=== PATIENT | male | born 1930 | race Caucasian/White ===

== ENCOUNTER 2017-08-15 10:03 | Outpatient (CLI) | payer MEDICARE, OTHER ==
--- NOTE | 2017-08-15 12:39 | ULT ---
RENAL SONOGRAM: HISTORY: Chronic renal disease. FINDINGS: The right kidney is 10.7 cm in length and the left is 9.1 cm. Minimal distention of each renal colle cting system is present. The urinary bladder is incompletely distended. Bilateral ureteral jets are apparent. IMPRESSION: Minimal distention of each renal collecting system. High-grade obstruction is not favored, given the bilaterality. No focal renal lesions are apparent. POS: [facility]
== END 2017-08-15 10:04 | disposition home or self-care (01) ==
LOC: ULT 10:03
PROVIDERS: ATTEND Internal Medicine Nephrology
DX: N18.9 Chronic kidney disease, unspecified (principal)
CPT/HCPCS: 76770

== ENCOUNTER 2017-09-04 11:25 | Outpatient (CLI) | payer MEDICARE, OTHER ==
--- NOTE | 2017-09-04 13:07 | RAD ---
PA AND LATERAL CHEST: History: Dyspnea. FINDINGS: Comparison made with 02-20-17. Heart size is normal. The aorta is tortuous. The lungs are well expanded. Stable chronic changes. No lobar consolidation, pneumothoraces or pleural effusions are seen. Old rib fractures are again redemo nstrated. There are degenerative changes of the spine. IMPRESSION: Stable exam. No acute process. POS: [facility]
== END 2017-09-04 11:26 | disposition home or self-care (01) ==
LOC: RAD 11:25
PROVIDERS: ATTEND Internal Medicine Critical Care Medicine
DX: R06.00 Dyspnea, unspecified (principal)
CPT/HCPCS: 71046

== ENCOUNTER 2017-09-13 12:22 | Outpatient (CLI) | payer MEDICARE, OTHER ==
--- NOTE | 2017-09-13 13:21 | RAD ---
CHEST TWO VIEWS: History: Dyspnea. Comparison: 09-04-17 FINDINGS: Heart size is within normal limits. There are atherosclerotic changes of the aorta. The lungs are sonal ar of infiltrates. There are arthritic changes of the spine and there are old right rib fractures and old right clavicle fracture noted. IMPRESSION: COPD type changes. No active intrathoracic disease. POS: [facility]
== END 2017-09-13 12:23 | disposition home or self-care (01) ==
LOC: RAD 12:22
PROVIDERS: ATTEND Internal Medicine Critical Care Medicine
DX: R06.00 Dyspnea, unspecified (principal)
CPT/HCPCS: 71046

== ENCOUNTER 2018-01-22 06:15 | Inpatient (IN) | payer MEDICARE, OTHER ==
[2018-01-22 06:37] LABS: #Basophils 0.1 thou/uL (0.0-0.2); #Eosinphils 0.2 thou/uL (0.0-0.7); #Lymphocytes 2.1 thou/uL (1.20-3.40); #Monocytes 0.7 thou/uL (0.11-0.59); #Neutrophils 3.6 thou/uL (1.40-6.50); %Basophils 0.8 % (0.0-1.0); %Eosinophils 3.6 % (0.0-10.0); %Lymphocytes 30.9 % (21.0-51.0); %Monocytes 10.4 % (0.0-10.0); %Neutrophils 54.4 % (42.0-75.0); Hemoglobin 14.2 g/dL (14.0-18.0); Mean Corpuscular HGB CONC 34.7 g/dL (32.0-36.0); Mean Corpuscular Hemoglobin 35.2 pg (27.0-31.0); Mean Platelet Volume 7.4 fL (7.4-10.4); Platelet Count 190 thou/uL (130-400); RBC Distribution Width 11.8 % (11.5-14.5); Red Blood Cell (RBC) Count 4.02 mill/uL (4.70-6.10); White Blood Cell (WBC) Count 6.7 thou/uL (4.8-10.8)
[2018-01-22 06:42] LABS: INR-International Normal Ratio 1.1; PTT 31.1 SEC (22.9-36.1); Prothrombin Time 13.9 SEC (12.0-14.7)
[2018-01-22 06:51] LABS: ALT (SGPT) 11 U/L (8-55); AST (SGOT) 19 U/L (5-34); Albumin 3.6 g/dL (3.4-4.8); Alkaline Phosphatase 67 U/L (40-150); Anion Gap 11 mmol/L (10-20); BUN (Urea Nitrogen) 19 mg/dL (8.4-25.7); Bilirubin, Total 0.6 mg/dL (0.2-1.2); Calc. Creatinine Clearance 0 mL/min (70-130); Calcium 9.3 mg/dL (7.8-10.44); Carbon Dioxide 25 mmol/L (23-31); Chloride 108 mmol/L (98-107); Estimated GFR-MDRD 45; Globulin 2.6 g/dL (2.4-3.5); Glucose 99 mg/dL (83-110); Lipase 108 U/L (8-78); Magnesium 2.4 mg/dL (1.6-2.6); Potassium 4.2 mmol/L (3.5-5.1); Protein, Total 6.2 g/dL (5.8-8.1); Sodium 140 mmol/L (136-145)
[2018-01-22 06:55] LABS: CKMB 1.4 ng/mL (0-6.6); Troponin I Less than 0.010 ng/mL (< 0.028)
--- NOTE | 2018-01-22 07:44 | RAD ---
UPRIGHT FRONTAL CHEST RADIOGRAPH: DATE: 01/22/18. COMPARISON: 03/14/14. HISTORY: Altered mental status with right-sided facial droop. FINDINGS: Old fracture of mid shaft right clavicle and old right rib fractures noted. There is an old AC joint injury on the left which includes a distal clavicle fracture and widening of the left AC and CC interspace. There is chronic linear interstitial density bilaterally, unchanged. There is no pneumothorax, pleural fluid, lobar consolidation, or alveolar edema. There is atherosc lerotic calcification in the aortic arch. IMPRESSION: Multiple stable chronic findings as described above. POS: [facility]
[2018-01-22 08:06] LABS: Bilirubin Negative (Negative); Blood, Urine Negative (Negative); Clarity CLEAR (Clear); Glucose, Urine (Dipstick) Negative (Negative); Leukocyte Negative (Negative); Nitrite Negative (Negative); Protein, Urine (Dipstick) Negative (Neg-Trace); Specific Gravity, Urine 1.036 (1.002-1.036); Urobilinogen 0.2 mg/dL (0.2-1.0); pH, Urine 7.5 (5.0-9.0)
--- NOTE | 2018-01-22 09:11 | CT ---
PRELIMINARY REPORT/[facility]/EMERGENTY AFTER-HOURS PROCEDURE Addendum created by James Pierre DO on 01/22/2018 6:43 AM Central Time ([place]) The findings wer e verbally communicated via telephone conference with JOHNNY Ribera at 6:43 AM CDT on 01/23/20 18. The findings were acknowledged and understood. Initial Report created on 01/22/2018 6:33 AM Central Time ([place] & [place]) CT Head Without Intravenous Contrast CLINICAL HISTORY: 87 years old, male; Signs and symptoms; Weakness, facial; Additional info: Pt was last seen normal at 0300. Pt is having rt side facial droop TECHNIQUE: Axial computed tomography images of the head/brain without intravenous contrast. COMPARISON: No relevant prior studies available. FINDINGS: Brain: There is a moderate burden of hypodense lesions in the frontoparietal white matter. There are calcifications of the bilateral cerebellar white matter, thalami, basal ganglia, and bilateral fronto parietal white matter suggesting Fahr disease. There is moderate generalized brain parenchymal volume loss. There is no acute cerebral cortical edema. There is no intracranial hemorrhage. There is a 10 mm chronic area of encephalomalacia in the left frontal cortex at the vertex. Ventricles: Unremarkable. No ventriculomegaly. Bones/joints: Unremarkable. No acute fracture. Soft tissues: Unremarkable. Vasculature: There are moderate intracranial atherosclerotic vascular calcifications. Sinuses: Unremarkable as visualized. No acute sinusitis. Mastoid air cells: Unremarkable as visualized. No mastoid effusion. IMPRESSION: 1. There is a moderate burden of hypodense lesions in the frontoparietal white matter. These are prob ably secondary to chronic small vessel ischemic disease, however they are age indeterminate without a comparison study and I cannot exclude an acute or subacute lacunar infarction. If there is clinical suspicion of acute ischemia, further evaluation with MRI could be considered. 2. There is no mass effect, midline shift, intracranial hemorrhage, or large arterial vessel territor y acute cerebral cortical edema. 3. 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 This interpretation was based upon the receipt of 73 image(s). Thank you for allowing us to participate in the care of your patient. Dictated and Authenticated by: James Pierre DO 01/22/2018 6:33 AM Central Time ([place] & [place]) CT BRAIN WITHOUT CONTRAST: FINAL REPORT I agree with the preliminary report given by Dr. Pierre with [facility]. Findings are similar to those seen on 08-16-17. POS: [facility]
--- NOTE | 2018-01-22 09:49 | CT ---
Addendum created by James Pierre DO on 01/22/2018 6:43 AM Central Time ([place]) The findings wer e verbally communicated via telephone conference with JOHNNY Ribera at 6:43 AM CDT on 01/23/20 18. The findings were acknowledged and understood. Initial Report created on 01/22/2018 6:33 AM Central Time ([place] & [place]) CT Head Without Intravenous Contrast CLINICAL HISTORY: 87 years old, male; Signs and symptoms; Weakness, facial; Additional info: Pt was last seen normal at 0300. Pt is having rt side facial droop TECHNIQUE: Axial computed tomography images of the head/brain without intravenous contrast. COMPARISON: No relevant prior studies available. FINDINGS: Brain: There is a moderate burden of hypodense lesions in the frontoparietal white matter. There are calcifications of the bilateral cerebellar white matter, thalami, basal ganglia, and bilateral fronto parietal white matter suggesting Fahr disease. There is moderate generalized brain parenchymal volume loss. Th ere is no acute cerebral cortical edema. There is no intracranial hemorrhage. There is a 10 mm chroni c area of encephalomalacia in the left frontal cortex at the vertex. Ventricles: Unremarkable. No ventriculomegaly. Bones/joints: Unremarkable. No acute fracture. Soft tissues: Unremarkable. Vasculature: There are moderate intracranial atherosclerotic vascular calcifications. Sinuses: Unremarkable as visualized. No acute sinusitis. Mastoid air cells: Unremarkable as visualized. No mastoid effusion. IMPRESSION: 1. There is a moderate burden of hypodense lesions in the frontoparietal white matter. These are prob ably secondary to chronic small vessel ischemic disease, however they are age indeterminate without a comparison study and I cannot exclude an acute or subacute lacunar infarction. If there is clinical suspicion of acute ischemia, further evaluation with MRI could be considered. 2. There is no mass effect, midline shift, intracranial hemorrhage, or large arterial vessel territor y acute cerebral cortical edema. 3. 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 This interpretation was based upon the receipt of 73 image(s). Thank you for allowing us to participate in the care of your patient. Dictated and Authenticated by: James Pierre DO 01/22/2018 6:33 AM Central Time ([place]) FINAL REPORT CT ANGIOGRAM OF THE HEAD CT ANGIOGRAM OF THE NECK: DATE: 01/22/18. COMPARISON: None. HISTORY: Right-sided facial droop. FINDINGS: Serial axial CT imaging at 1.25 mm intervals from the vertex through the lung apices provided with IV contrast. Coronal and sagittal 3D reformatted imaging obtained utilizing a CT angiogram protocol. FINDINGS: Imaged lung apices are unremarkable. The retroantral and parapharyngeal fat appears clear. The paro tid and submandibular glands appear grossly unremarkable. No lymphadenopathy is seen in the neck. The origin of the great vessels is not included on this exam. Imaged portions of the proximal left subclavian artery, common carotid artery, and innominate artery demonstrate patency. There is scattered atherosclerotic calcification of the proximal aspect bilateral subclavian arteries . There is mild stenosis at the origin of the left vertebral artery. The left vertebral artery appears unremarkable otherwise. The right vertebral artery appears grossly unremarkable. The right common carotid artery is patent and tortuous proximally. There is mild atherosclerotic candy cification of the proximal right ICA and proximal right ECA. The right ICA is tortuous. No hemodyna mically significant stenosis is seen involving the right internal carotid artery. The left common carotid artery is tortuous proximally but patent with no hemodynamically significant stenosis. There is a prominent focus of atherosclerotic disease which includes calcified and noncalcified plaqu e at the origin of the left internal carotid artery. This prominent calcified and noncalcified plaqu e measures 2.2 cm in length. There is resultant stenosis of the proximal left ICA measuring in the 6 0% range. Left ICA distal to this is tortuous but patent. The basilar artery and its branches appear patent. There is atherosclerotic calcification of bilateral cavernous carotid arteries. The A1 segment and d istal EDDY branches appear intact bilaterally. The M1 segment and the MCA bifurcation appears within normal limits bilaterally. No worrisome lytic or blastic bone lesion. Multilevel degenerative change noted within the cervical spine, including multilevel disk space narrowing and facet hypertrophy, right greater than left. There is evidence of proximal M2 branch occlusion anteriorly on the left on axial image 196 and sagit daksha image 60. IMPRESSION: 1. 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 2. M2 proximal clot within left middle cerebral artery branches as detailed above. 3. This is in agreement with the preliminary [facility] report. POS: [facility]
[2018-01-22] MEDS ORDERED: Ondansetron HCl/PF 4 MG/2 ML Vial IVP PRN (10:38)
[2018-01-22] MEDS ORDERED: Labetalol HCl 100 MG/20 ML VIAL SLOW IVP PRN (10:38)
[2018-01-22] MEDS ORDERED: Guaifenesin DM 100-10/5 ML UDCUP PO PRN (10:38)
[2018-01-22] MEDS ORDERED: Dextrose 5 % And 0.9 % NaCl 1,000 ML IV SCH (11:00)
--- NOTE | 2018-01-22 11:33 | CON ---
DATE OF CONSULTATION: 01/22/2018 This is an 87-year-old gentleman who was brought in from [place] after 3:00 in the morning. He woke up with inability to talk, slurred speech. His called the ambulance [facility] where an emergency CT head did not show anything acute, but a CT angio s howed a 60% stenosis within the left internal carotid artery as well as an M2 proximal clot in the le ft middle cerebral artery branches. He was given as per the protocol t-PA as per the ER physician. Please review the ER physician's note as to the medicine given and at what time. Apparently Dr. Barbour was consulted by phone and that he was a candidate for t-PA, which was given. T otal amount of medication given, Activase 100 mg. The patient is otherwise in the ICU now awake, alert, responsive. His slurred speech is improved. H e is able to move all 4 extremities. He still got some drooping of his right side of his face. PAST MEDICAL HISTORY: The patient has an extensive past medical history that is well outlined in his medical records, pertinent for cardiac arrhythmias, atrial fibrillation, hyperlipidemia, high choles terol, dementia, previous CVA, history of trauma with multiple fractures as outlined. PAST SURGICAL HISTORY: Included colonoscopy, prostate radiation, lap for perforated colon. MEDICATIONS: His list of medicine from home includes trazodone 50, Flomax 0.4, Protonix 40, metoprol ol, Lopressor 25 DuoNeb as needed. Amiodarone 400 twice a day, Aricept 5, Cardizem 240, Lipitor 20, aspirin 325. ALLERGIES: TRAMADOL. SOCIAL/FAMILY HISTORY: No alcohol or tobacco abuse. REVIEW OF SYSTEMS: Otherwise unremarkable. PHYSICAL EXAMINATION: VITAL SIGNS: Sats are 95 on 2 liters, respiration 19, blood pressure 125/61, pulse is 69, atrial fib rillation. CHEST: Chest reveals no wheezing or crackles. CARDIAC: Normal S1, S2, no gallops. ABDOMEN: Soft, no masses. LABORATORY AND X-RAY FINDINGS: Chest x-ray was otherwise unremarkable. His lab shows a white count 6000, H&H 14 and 40, platelet 190, creatinine 1.47, mild azotemia which h as been chronic. IMPRESSION: 1. Acute right middle cerebral artery thrombus status post t-PA, 100 mg. 2. Dementia. 3. Chronic atrial fibrillation. 4. Benign prostatic hypertrophy. 5. History of prostate cancer. PLAN: I agree with ICU care. Continue home medication including aspirin and supportive care. PT ordered. We will follow while in the IMCU and notify Dr. Turner who has seen him in the past for several years. This is a consultation note, 70 minutes in which 50% spent in direct patient care.
--- NOTE | 2018-01-22 12:51 | HP ---
REASON FOR ADMISSION: Acute cerebrovascular accident status post TPA. HISTORY OF PRESENTING ILLNESS: Please note majority of this history is obtained by my talking to edy love's here at bedside as patient is aphasic and is not oriented at present. Patient apparently got up at 2 in the morning, went to restroom and came back to bed. He got up again at 4:00 a.m. to go to restroom, came back to bed. The got up to ask him if he is okay. He started groaning and could not talk. He was also confused/out of it per . He did not make eye contact when he was t rying to communicate. All of this concerned and patient's called EMS. As patient was within th e window and his CT angio revealed thrombus, he was given TPA in the ER. This was approved by Dr. Wes wallace, intervention neurosurgeon. The also mentions that he has had prior history of stroke in and he could not walk then, but then it got better and was ambulating. He has a tendency to fa ll with unsteady gait from then on. He also has history of atrial fibrillation, but has not been giv en anticoagulation due to risk of fall and bleed due to unsteady gait. Currently, he is awake, but i s not oriented. PAST MEDICAL AND SURGICAL HISTORY: History of CVA in 2013 with no residual dementia, hypertension, d yslipidemia, chronic atrial fibrillation, hernia repair, right knee surgery, colonoscopy. Prostate c ancer with prior history of radiation implants placed. History of rectal bleed due to radiation inju ry from prostate cancer to the garcia of the rectum per . CURRENT MEDICATIONS: Patient takes aspirin 325 mg p.o. daily, calcium 600 mg p.o. daily, glucosamine daily, Multaq 400 mg twice daily, Namenda 10 mg twice daily, Myrbetriq extended release 25 mg daily, Crestor 10 mg p.o. at bedtime, Aricept 10 mg daily. ALLERGIES: No known drug allergies. SOCIAL HISTORY: Does not abuse alcohol or drugs. No history of smoking. Lives with his of 18 years now. FAMILY HISTORY: Mother lived up to 92 years. Father of stroke and its complications in his 60s . CODE STATUS: FULL. Power of city attorney is his son, Mr. Jeyson Churchill. He lives in [place]. Numbe r to reach him is [phone]. His , Ms. Nolasco's number is [phone]. REVIEW OF SYSTEMS: Cannot be obtained as patient is not oriented. PHYSICAL EXAMINATION: GENERAL: The patient is an 87-year-old male who is currently not in any distress. VITAL SIGNS: Blood pressure 156/74, pulse 66 per minute, respiratory rate 18 per minute, temperature 97.4 degrees Fahrenheit, saturating 97% on 2 liters nasal cannula. NECK: Supple, no elevated JVD. EYES: Extraocular muscles intact. Pupils reacting to light. ORAL CAVITY: Mucous membranes are moist. No exudates or congestion. CARDIOVASCULAR SYSTEM: S1, S2 heard. Irregular rhythm. RESPIRATORY SYSTEM: Air entry 1+ bilateral. Scattered rhonchi plus no rales or wheezes. ABDOMEN: Soft, bowel sounds heard. No tenderness, rigidity or guarding. EXTREMITIES: No peripheral edema or calf tenderness. VASCULAR SYSTEM: Peripheral pulses 1+ bilateral, no ischemic ulcerations or gangrene. CENTRAL NERVOUS SYSTEM: There is loss of nasolabial fold on the left side. Otherwise, cranial nerve s are grossly intact. Motor system strength in right side is 3/5, left is 5/5, reflexes are 2+ bilat eral. Babinski is equivocal. Cerebellar signs could not be tested as patient is not oriented. Gait is not tested. PSYCHIATRIC SYSTEM: Cannot be ascertained due to patient's poor cognition at present. IMAGING DATA AND LABORATORY DATA: CT brain done shows moderate hypodense lesions in the frontopariet al white matter. There is no mass effect, midline shift or hemorrhage seen. There are calcification s in bilateral cerebellar white matter thalami, basal ganglia and bilateral frontoparietal white wesley er suggestive of Fahr disease. CT angio brain showed approximately 60% stenosis at the origin of lef t internal carotid artery. There is end to proximal clot within the left middle cerebral artery bran ches. Chest x-ray done shows chronic stable findings. EKG done shows sinus rhythm at 68 beats per m inute. There is frequent PVC seen. There is Q-wave seen in lead II, III, AVF. White count of 6.7, hemoglobin and hematocrit 14 and 40, platelet count 190, MCV is 101 with 54% neutrophils. PT, INR, P TT within normal limits. BUN 19, creatinine 1.4 and serum glucose 99. Liver enzymes within normal l imits. First set of cardiac enzymes are negative. Lipase is 108. Albumin is 3.6. First set of car diac enzymes are negative. CLINICAL IMPRESSION AND PLAN: The patient is status post CVA with aphasia and right-sided hemiparesi s, status post TPA. He will be on aspirin, Lipitor, D5 normal saline at 75 mL per hour. Continue hi s Cardizem CD, donepezil, Namenda and Flomax as before. We will obtain consultations with Dr. Anselmo rodriguez for Neurology and Dr. Wynne for Pulmonary and Critical Care. Echo with 2D Doppler and MRI will b e obtained. We will continue to closely monitor him for any hemodynamic compromise. His current cod e status is FULL. We will update his son who is also the power of city attorney, Missael Jeyson Churchill don[place]
--- NOTE | 2018-01-22 13:14 | MRI ---
BRAIN MRI WITHOUT CONTRAST: 01/22/2018 HISTORY: CVA. COMPARISON: 03/14/2014 TECHNIQUE: Multiplanar, multisequence MR imaging of the brain is obtained without contrast. FINDINGS: Weighted imaging demonstrates no evidence for acute infarction. Gradient echo imaging demonstrates blooming artifact within the basal ganglia and thalami, as well as within the periventricular white matter, evidence of extensive calcification, stable. Arterial flow voids at the axial level of the skull base appear grossly unremarkable. There is extensive periventricular deep and subcortical white matter hypodensity, evidence of small v essel disease. Small foci of old infarction noted in the bilateral cerebellar hemispheres. Regional bone marrow signal intensity appears within normal limits. Stable diffuse cerebral volume l oss. The imaged paranasal sinuses and mastoid air cells are well aerated. IMPRESSION: Cerebral volume loss with extensive small vessel disease. No acute infarction. POS: [facility]
[2018-01-22] MEDS: Dronedarone HCl 400 MG TAB PO SCH (17:26)
--- NOTE | 2018-01-22 21:29 | CON ---
DATE OF CONSULTATION: 01/22/2018 Consultation is request for history of prostate cancer and lower urinary tract symptoms. HISTORY OF PRESENT ILLNESS: The patient is an 87-year-old male who was followed by me after transferring from urologist for his history of prostate cancer and his lower urinary tract symptoms. He was admitted to the hospital with a stroke. He denies any difficulty urinating currently. He does not feel full like he is unable to empty. Normally he had frequency every 2-3 hours, nocturia x4. He has been taking Myrbetriq for years at 50 mg. An Uroflow in October of this year was also concerned about the inability of the bladder to contract and empty appropriately , so I had to hold this. I asked him to restart it only if his nocturia or lower urinary tract symptoms worsened. He comes back on 25 mg and the daughter and he assumed that the primary restarted at a lower dose. He has T1C prostate cancer, Sarles 7, PSA 11.0 status brachytherapy in 2001. Last PSA was less than 0.1 from 01/2015. I don't think there is need to continue checking PSAs. He also had a history of urinary tract infections which I already completed workup including a renal ultrasound from August of this year which was normal and cystoscopy from October of this year which showed trabeculations and hyperemia near the bladder neck consistent with his prior brachytherapy. Hygiene was emphasized at this time since he did have excess foreskin, but no phimosis. PAST MEDICAL HISTORY: Significant for GERD; TIAs; CVA, most significant one was in 02/2014; atrial fibrillation; dementia. PAST SURGICAL HISTORY: Includes hernia, colon surgery after an injury during colonoscopy, right knee surgery for trauma and the above-mentioned brachytherapy. MEDICATIONS: Aspirin, glucosamine, Multaq, Namenda, Aricept and Cardizem. SOCIAL HISTORY: He does not smoke. He has alcoholic beverages once or twice a week. He denies any shortness of breath, cough, chest pain. He does have some weakness on the right, his bowels are normal. ALLERGIES: None. REVIEW OF SYSTEMS: Already mentioned above to include a colonoscopy in 2007 that was normal. FAMILY HISTORY: Reveals his father at 71 of heart disease and diabetes. Mother at 92 of stroke. PHYSICAL EXAMINATION: GENERAL: He is alert and appropriate. VITAL SIGNS: T-max 98.6, blood pressure 136/84, heart rate 68, satting 93% on 2 liters with the respiratory rate of 18. NECK: No obvious JVD. HEENT: He has no scleral icterus. CARDIOVASCULAR: Regular rate, irregular rhythm. LUNGS: Clear to auscultation bilaterally. ABDOMEN: Softly distended with normoactive bowel sounds. GENITOURINARY: Testes were descended bilaterally and atrophic. Phallus was uncircumcised without lesions, nor phimosis and no smegma noted. There was no meatal stenosis. EXTREMITIES: No lower extremity edema. He was able to move and grasp with his limbs. LABORATORY DATA: CBC is unremarkable. Creatinine is 1.47, which is similar to his baseline. Lipase was slightly elevated at 108. The urinalysis was negative. Last recent positive culture was from 01/2017 from urinalysis standpoint. ASSESSMENT AND PLAN: We have an 87-year-old male admitted with a stroke and my only concern would be to make sure he is adequately emptying, so I have asked the nurse to bladder scan him. He can continue his Myrbetriq 25 mg as long as it is not going to interact with any medication that is added during the stay-- and he's emptying adequately. He can continue without a catheter for now and follow up with me as he was previously scheduled. [place]
[2018-01-22] MEDS: Atorvastatin Calcium 20 MG TAB PO SCH (22:21)
[2018-01-22] MEDS: Donepezil HCl 5 MG TAB PO SCH (22:21)
[2018-01-22] MEDS: Tamsulosin HCl 0.4 MG CAP PO SCH (22:21)
[2018-01-22] MEDS: Docusate 100 MG CAP PO SCH (22:25)
[2018-01-23] MEDS ORDERED: Pantoprazole 40 MG GRANULES PACKET PO SCH (09:00)
[2018-01-23] MEDS: Aspirin 325 mg Enteric Coated Tablet PO SCH (09:18)
[2018-01-23] MEDS: Dronedarone HCl 400 MG TAB PO SCH (09:18)
[2018-01-23 09:19] LABS: #Basophils 0.1 thou/uL (0.0-0.2); #Eosinphils 0.1 thou/uL (0.0-0.7); #Lymphocytes 1.2 thou/uL (1.20-3.40); #Monocytes 0.6 thou/uL (0.11-0.59); #Neutrophils 5.4 thou/uL (1.40-6.50); %Basophils 0.7 % (0.0-1.0); %Eosinophils 1.1 % (0.0-10.0); %Lymphocytes 16.3 % (21.0-51.0); %Monocytes 8.7 % (0.0-10.0); %Neutrophils 73.2 % (42.0-75.0); Hemoglobin 14.1 g/dL (14.0-18.0); Mean Corpuscular HGB CONC 34.1 g/dL (32.0-36.0); Mean Corpuscular Hemoglobin 33.9 pg (27.0-31.0); Mean Corpuscular Volume 99.6 fL (78.0-98.0); Mean Platelet Volume 7.5 fL (7.4-10.4); Platelet Count 175 thou/uL (130-400); RBC Distribution Width 11.6 % (11.5-14.5); Red Blood Cell (RBC) Count 4.16 mill/uL (4.70-6.10); White Blood Cell (WBC) Count 7.3 thou/uL (4.8-10.8)
[2018-01-23] MEDS: Docusate 100 MG CAP PO SCH ×2 (09:19→23:43)
[2018-01-23 09:37] LABS: Anion Gap 11 mmol/L (10-20); BUN (Urea Nitrogen) 20 mg/dL (8.4-25.7); Calc. Creatinine Clearance 37 mL/min (70-130); Calcium 9.1 mg/dL (7.8-10.44); Carbon Dioxide 24 mmol/L (23-31); Cardiac Risk 2.6 (Less than 4.5); Chloride 106 mmol/L (98-107); Cholesterol 124 mg/dl (< 200 Desired); Estimated GFR-MDRD 43; Glucose 166 mg/dL (83-110); HDL Cholesterol 48 mg/dL (>60 Neg Risk); LDL Cholesterol, Calculated 61 mg/dL; Potassium 4.1 mmol/L (3.5-5.1); Sodium 137 mmol/L (136-145); Triglycerides 76 mg/dL (Less than 150)
--- NOTE | 2018-01-23 10:41 | PRG ---
DATE OF SERVICE: 01/23/2018 SUBJECTIVE: The patient apparently did not sleep well per his family member. Overnight, there have been no new events. He was bladder scanned for approximately 280, but was not complaining of urgency or difficulty in emptying. So, I opted not to catheterize him; however, I did say all Myrbetriq nee ds to be held for this reason. OBJECTIVE: His vitals have been stable. He has been using a urinal or voiding into a diaper. ASSESSMENT AND PLAN: On assessment, we have an 87-year-old gentleman, admitted with a stroke, doing well from that standpoint. Significant lower urinary tract symptoms with incomplete emptying and a r [facility] history of prostate cancer. Hold on Myrbetriq. Monitor bladder scan if the patient has concer ns regarding emptying, but hold off on any catheterization at this point. If catheter would be neede d in the future, there should be no trouble in placement. A cystoscopy in October of this year showed no obstructive concerns.
--- NOTE | 2018-01-23 12:45 | PDOC.PN ---
- Subjective Encounter Start Date: 01/23/18 Encounter Start Time: 10:00 Subjective: awake, communicating well now -: is oriented and moving all extremities -: son and daughter at bedside - Objective Resuscitation Status: Resuscitation Status FULL:Full Resuscitation MAR Reviewed: Yes Vital Signs & Weight: Vital Signs (12 hours) Temp Pulse Pulse Pulse Resp BP BP 01/23/18 12:00 98.1 F 01/23/18 09:55 85 85 95/65 01/23/18 09:19 84 112/61 01/23/18 08:00 30 H 01/23/18 07:59 98.6 F 84 17 01/23/18 04:00 98.6 F BP Pulse Ox 01/23/18 12:00 01/23/18 09:55 103/57 L 01/23/18 09:19 01/23/18 08:00 01/23/18 07:59 97 01/23/18 04:00 Weight Admit Weight 172 lb 6.424 oz Weight 172 lb 6.424 oz Most Recent Monitor Data Heart Rate from ECG 80 NIBP 125/66 NIBP BP-Mean 80 Respiration from ECG 12 SpO2 98 I&O: 01/22/18 01/23/18 01/24/18 06:59 06:59 06:59 Intake Total 200 600 Output Total 930 200 Balance -730 400 Result Diagrams: 01/23/18 09:12 01/23/18 09:12 Phys Exam - Physical Examination HEENT: PERRLA, moist MMs Neck: no JVD, supple Respiratory: no wheezing, no rales Cardiovascular: RRR, no significant murmur Gastrointestinal: soft, non-tender, positive bowel sounds Musculoskeletal: no edema, pulses present Neurological: non-focal, moves all 4 limbs Psychiatric: normal affect, A&O x 3 Dx/Plan (1) CVA (cerebrovascular accident) Code(s): I63.9 - CEREBRAL INFARCTION, UNSPECIFIED Status: Acute Qualifiers: CVA mechanism: thrombosis Comment: s/p tpa (2) HTN (hypertension) Code(s): I10 - ESSENTIAL (PRIMARY) HYPERTENSION Status: Chronic Qualifiers: Hypertension type: essential hypertension Qualified Code(s): I10 - Essential (primary) hypertension (3) Dyslipidemia Code(s): E78.5 - HYPERLIPIDEMIA, UNSPECIFIED Status: Chronic (4) Atrial fibrillation Code(s): I48.91 - UNSPECIFIED ATRIAL FIBRILLATION Status: Chronic Qualifiers: Atrial fibrillation type: chronic Qualified Code(s): I48.2 - Chronic atrial fibrillation (5) Dementia Code(s): F03.90 - UNSPECIFIED DEMENTIA WITHOUT BEHAVIORAL DISTURBANCE Status: Chronic Qualifiers: Dementia type: Alzheimer's disease Alzheimer's disease onset: unspecified onset Dementia behavioral disturbance: without behavioral disturbance Qualified Code(s): G30.9 - Alzheimer's disease, unspecified; F02.80 - Dementia in other diseases classified elsewhere without behavioral disturbance; F02.80 - Dementia in other diseases classified elsewhere without behavioral disturbance; F02.80 - Dementia in other diseases classified elsewhere without behavioral disturbance - Plan tx pt to stroke unit -: rehab eval, may dc to rehab if accepted -: echo results pending -: is on asp, lipitor, multaq and flomax -: is high risk for falls and bleeding and is off anticoag from long time * . PT/OT to mobilize as tolerated. Is eating well. Review of Systems - Medications/Allergies Allergies/Adverse Reactions: Allergies Allergy/AdvReac Type Severity Reaction Status Date / Time tramadol HCl [From [facility]] AdvReac Intermediate Verified 03/16/14 18:39 Medications: Current Medications Acetaminophen (Tylenol) 650 mg PO Q4H PRN PRN Reason: Headache/Fever or Pain Albuterol/Ipratropium (Duoneb) 3 ml NEB Q4HR PRN PRN Reason: Dyspnea/Wheezing/SOB Aspirin (Ecotrin) 325 mg PO DAILY [facility] Last Admin: 01/23/18 09:18 Dose: 325 mg Atorvastatin Calcium (Lipitor) 20 mg PO [facility] Last Admin: 01/22/18 22:21 Dose: 20 mg Diltiazem HCl (Cardizem Cd) 240 mg PO DAILY [facility] Last Admin: 01/23/18 09:19 Dose: 240 mg Docusate Sodium (Colace) 100 mg PO BID [facility] Last Admin: 01/23/18 09:19 Dose: 100 mg Donepezil HCl (Aricept) 5 mg PO [facility] Last Admin: 01/22/18 22:21 Dose: 5 mg Dronedarone (Multaq) 400 mg PO BID[facility] Last Admin: 01/23/18 09:18 Dose: 400 mg Guaifenesin/Dextromethorphan (Robitussin Dm) 15 ml PO Q4H PRN PRN Reason: Cough Labetalol HCl (Normodyne) 10 mg SLOW IVP Q2H PRN PRN Reason: SBP > 180 Ondansetron HCl (Zofran) 4 mg IVP Q6H PRN PRN Reason: Nausea/Vomiting Pantoprazole Sodium (Protonix) 40 mg PO DAILY [facility] Last Admin: 01/23/18 09:22 Dose: 40 mg Tamsulosin HCl (Flomax) 0.4 mg PO HS [facility] Last Admin: 01/22/18 22:21 Dose: 0.4 mg
--- NOTE | 2018-01-23 13:46 | CON ---
DATE OF CONSULTATION: 01/23/2018 REASON FOR CONSULTATION: Recent TIA. HISTORY OF PRESENT ILLNESS: Mr. Churchill is a very pleasant 87-year-old gentleman who I have seen and evaluated in the past. He recently presented with a CVA. He was given thrombolytic therapy. He pr esented with aphasia. He was seen and evaluated in the emergency room and was given t-PA. His symptoms have markedly improved per . He has had a previous CVA diagnosed after likely atria l fibrillation. The patient has opted against the use of anticoagulation therapy. The family has be en concerned about his fall risk. They still maintain that stance. PAST MEDICAL HISTORY: Previous cerebrovascular accident, recent CVA, prostate cancer, dementia, hype rtension, hyperlipidemia, hernia repair, knee surgery, colonoscopy. ALLERGIES: None. SOCIAL HISTORY: No current tobacco or alcohol use. REVIEW OF SYSTEMS: Ten point review of systems reviewed as above, otherwise negative. PHYSICAL EXAMINATION: VITAL SIGNS: Blood pressure 110/66, pulse 80, temperature afebrile. GENERAL: Patient is a pleasant male who is in no acute distress. The patient appears his stated age. NEUROLOGIC: The patient is alert and oriented times 3 with no focal neurologic deficits. HEENT: Sclerae without icterus. Mouth has moist mucous membranes with normal pallor. NECK: No JVD. Carotid upstroke brisk. No bruits bilaterally. LUNGS: Clear to auscultation with unlabored respirations. BACK: No scoliosis or kyphosis. CARDIAC: Irregularly irregular. ABDOMEN: Soft, nontender, nondistended. No peritoneal signs present. No hepatosplenomegaly. No abn ormal striae. EXTREMITIES: 2+ femoral and 2+ dorsalis pedis pulses. No cyanosis, clubbing, or edema. SKIN: No gross abnormalities. PERTINENT LABS: Hemoglobin 14.1, hematocrit 41.4. IMPRESSION: 1. Atrial fibrillation. 2. Recent cerebrovascular accident. RECOMMENDATIONS: I again discussed this with his . She continues to be concerned about his fall risk. He has had multiple falls in the last 6 months. I did state he is at increased risk of strok e. She would like me to speak to his son. I will discuss this with the son who will be in tomorrow all the risks and benefits of proceeding with anticoagulation therapy. I have stressed anticoagulati on therapy with them in the past, but could not guarantee a risk of bleeding. At this point, we will stop Multaq. I would recommend continuing full dose aspirin if he decides not to proceed with antic oagulation treatment.
[2018-01-23 18:23] VITALS: BMI 22.9
--- NOTE | 2018-01-23 19:05 | PRG ---
DATE OF SERVICE: 01/23/2018 SUBJECTIVE: Zhao is afebrile. He has no complaints. His speech is much more fluent than it was yesterday. Dr. Wynne did the consult yesterday, but I did evaluate him yesterday and he was still dana te dysarthric when I saw him. He could repeat 1, 2, 3, 4 very rapidly and as fluently as he normally is. OBJECTIVE: VITAL SIGNS: Heart rate is 85, respiratory rate 18, oximetry is 91 on room air, blood pressure 110/6 0. LUNGS: Clear. HEART: Regular rhythm. ABDOMEN: Soft. EXTREMITIES: Without asymmetry. LABORATORY DATA: White count 7.3, hemoglobin 14.1, platelets 175. Electrolytes are normal. Creatin ine is 1.5, glucose 166. Intake and output was negative 730. IMPRESSION: Right resolving ischemic neurological event. MR imaging did not show evidence of an inf arct. He does have evidence of small vessel disease consistent with my interaction with him in the o ice. Today, his is doing a good job of taking care of him, but he in my opinion is clearly de aling with dementia. In the past, he has declined anticoagulation accepting the risk of a stroke. Dr. Canchola has been consulted and will discuss anticoagulation with him again. We are proceeding forward with no anticoagulation and really even if we are planning on anticoagulati ng, he should definitely be a do not resuscitate patient. I plan to discuss this with his and his son, both of them I feel I have a good relationship with . He is stable to move out of the Intensive Care Unit.
[2018-01-23] MEDS: Acetaminophen 325 MG TAB PO PRN (23:43)
[2018-01-23] MEDS: Tamsulosin HCl 0.4 MG CAP PO SCH (23:43)
[2018-01-23] MEDS: Donepezil HCl 5 MG TAB PO SCH (23:43)
[2018-01-23] MEDS: Atorvastatin Calcium 20 MG TAB PO SCH (23:43)
[2018-01-24] MEDS: Aspirin 325 mg Enteric Coated Tablet PO SCH (08:13)
[2018-01-24] MEDS: Docusate 100 MG CAP PO SCH ×2 (08:13→22:02)
--- NOTE | 2018-01-24 08:47 | CON ---
DATE OF CONSULTATION: 01/22/2018 REFERRING PROVIDER: Alia Eric M.D. REASON FOR CONSULTATION: Stroke. HISTORY OF PRESENT ILLNESS: Mr. Churchill is a pleasant 87-year-old male, who has been consu lted for evaluation of stroke. History is obtained from patient's who was present at bedside. reports that the patient had a sudden onset of speech difficulty this morning around 2:00 a.m. noted that he was trying to communicate, but he was unable to talk. He was groaning at that marika e. He seemed confused as well, which concerned her and thus she called EMS. He was brought to the [facility] Emergency Room. At that time, on evaluation by the ER physician, he was noted to have some weakness . CT head without contrast was done, which showed no acute intracranial abnormality. He had a CT angiogram of the head and neck, which showed acute embolus in the left MCA distribution. Thus, TPA was performed. He has a prior history of CVA in 2013, at which time he developed the wea kness in both the lower extremities and difficulty with gait imbalance. He had slowly recovered over time and was able to ambulate without any difficulty; however, he was having increasing difficulty i n balancing , anticoagulation therapy due to . The patient's family reports that his speec h is much better and denies any chest pain, palpitation, numbness, tingling or weakness. PAST MEDICAL HISTORY: Significant for hypertension, dyslipidemia, chronic atrial fibrillation, histo ry of stroke and dementia. PAST SURGICAL HISTORY: Significant for hernia repair, right knee surgery, history of prostate cancer status post radiation therapy, colonoscopy. SOCIAL HISTORY: He does not smoke cigarettes, drink alcohol, or use illicit drugs FAMILY HISTORY: Noncontributory. CURRENT MEDICATIONS: Please review MAR. ALLERGIES: Include TRAMADOL. REVIEW OF SYSTEMS: As mentioned above in the HPI, otherwise negative. PHYSICAL EXAMINATION: VITAL SIGNS: Blood pressure 157/76, pulse of 72, temperature of 98.6, room air. GENERAL: Well-developed, well-nourished male, in no apparent distress. RESPIRATORY: Clear to auscultation bilaterally. CARDIOVASCULAR: Regular rate and rhythm. NEUROLOGICAL: Mental status: The patient is awake, alert, oriented x3. Speech and language: Fluen t speech. Cranial nerves: Pupils are 3 mm and reactive. Visual harris are intact. External muscle s are intact. No nystagmus noted. Face is symmetric. Tongue and uvula are midline. Motor exam steve wed normal tone and bulk with a 5/5 strength in both upper and lower extremities. Sensory: Sensatio n is intact and symmetric. Babinski: Plantar responses flexion bilaterally. Coordination intact to [id number] and finger tapping bilaterally. LABORATORY DATA: Labs are reviewed, which included CBC, coag panel, CMP and urinalysis, which is all essentially normal except creatinine of 1.47. IMAGING STUDIES: MRI brain without contrast was reviewed, which showed no acute intracranial abnorma lity. CT angiogram of the head and neck were reviewed, which showed 60% stenosis of the left interna l carotid artery, M2 proximal clot within the left middle cerebral artery, otherwise unremarkable. IMPRESSION: 1. . 2. Left middle cerebral artery embolus. 3. Left internal carotid artery . CT angiogram, which did show left middle cerebral artery embo john. At this time, I would recommend continuing PT, OT, speech therapy. I will recommend continuing with current medical management. anticoagulation therapy. follow up with Dr. Wu as an outpatient once he is discharged from the hospital. Thank you for your consultation.
--- NOTE | 2018-01-24 11:39 | PDOC.PN ---
- Subjective Encounter Start Date: 01/24/18 Encounter Start Time: 08:00 Subjective: awake, interacting well -: at bedside - Objective Resuscitation Status: Resuscitation Status FULL:Full Resuscitation MAR Reviewed: Yes Vital Signs & Weight: Vital Signs (12 hours) Temp Pulse Pulse Pulse Resp BP BP 01/24/18 08:33 79 85 118/61 01/24/18 08:13 81 118/59 L 01/24/18 08:00 98 F 85 20 01/24/18 04:01 97.3 F L 82 20 01/24/18 00:27 98.5 F 74 20 BP BP Pulse Ox 01/24/18 08:33 124/64 01/24/18 08:13 01/24/18 08:00 118/59 L 84 L 01/24/18 04:01 126/60 94 L 01/24/18 00:27 131/63 92 L Weight Admit Weight 172 lb 6.424 oz Weight 169 lb 1.6 oz Most Recent Monitor Data Heart Rate from ECG 80 NIBP 125/66 NIBP BP-Mean 80 Respiration from ECG 12 SpO2 98 I&O: 01/23/18 01/24/18 01/25/18 06:59 06:59 06:59 Intake Total 200 1340 Output Total 930 300 Balance -730 1040 Result Diagrams: 01/23/18 09:12 01/23/18 09:12 Phys Exam - Physical Examination HEENT: PERRLA, moist MMs Neck: no JVD, supple Respiratory: no wheezing, no rales Cardiovascular: RRR, no significant murmur Gastrointestinal: soft, non-tender, positive bowel sounds Musculoskeletal: no edema, pulses present Neurological: non-focal, moves all 4 limbs Psychiatric: normal affect, A&O x 3 Dx/Plan (1) CVA (cerebrovascular accident) Code(s): I63.9 - CEREBRAL INFARCTION, UNSPECIFIED Status: Acute Qualifiers: CVA mechanism: thrombosis Comment: s/p tpa (2) HTN (hypertension) Code(s): I10 - ESSENTIAL (PRIMARY) HYPERTENSION Status: Chronic Qualifiers: Hypertension type: essential hypertension Qualified Code(s): I10 - Essential (primary) hypertension (3) Dyslipidemia Code(s): E78.5 - HYPERLIPIDEMIA, UNSPECIFIED Status: Chronic (4) Atrial fibrillation Code(s): I48.91 - UNSPECIFIED ATRIAL FIBRILLATION Status: Chronic Qualifiers: Atrial fibrillation type: chronic Qualified Code(s): I48.2 - Chronic atrial fibrillation (5) Dementia Code(s): F03.90 - UNSPECIFIED DEMENTIA WITHOUT BEHAVIORAL DISTURBANCE Status: Chronic Qualifiers: Dementia type: Alzheimer's disease Alzheimer's disease onset: unspecified onset Dementia behavioral disturbance: without behavioral disturbance Qualified Code(s): G30.9 - Alzheimer's disease, unspecified; F02.80 - Dementia in other diseases classified elsewhere without behavioral disturbance; F02.80 - Dementia in other diseases classified elsewhere without behavioral disturbance; F02.80 - Dementia in other diseases classified elsewhere without behavioral disturbance - Plan hemo/neurostable -: dc planning -: echo results are pending -: has evaluated patient, anticoagulants if family agree -: is high risk for falls with increased risk of bleeding * . Review of Systems - Medications/Allergies Allergies/Adverse Reactions: Allergies Allergy/AdvReac Type Severity Reaction Status Date / Time tramadol HCl [From [facility]] AdvReac Intermediate Verified 03/16/14 18:39 Medications: Current Medications Acetaminophen (Tylenol) 650 mg PO Q4H PRN PRN Reason: Headache/Fever or Pain Last Admin: 01/23/18 23:43 Dose: 650 mg Albuterol/Ipratropium (Duoneb) 3 ml NEB Q4HR PRN PRN Reason: Dyspnea/Wheezing/SOB Aspirin (Ecotrin) 325 mg PO DAILY [facility] Last Admin: 01/24/18 08:13 Dose: 325 mg Atorvastatin Calcium (Lipitor) 20 mg PO HS [facility] Last Admin: 01/23/18 23:43 Dose: 20 mg Diltiazem HCl (Cardizem Cd) 240 mg PO DAILY [facility] Last Admin: 01/24/18 08:13 Dose: Not Given Docusate Sodium (Colace) 100 mg PO BID [facility] Last Admin: 01/24/18 08:13 Dose: 100 mg Donepezil HCl (Aricept) 5 mg PO HS [facility] Last Admin: 01/23/18 23:43 Dose: 5 mg Guaifenesin/Dextromethorphan (Robitussin Dm) 15 ml PO Q4H PRN PRN Reason: Cough Labetalol HCl (Normodyne) 10 mg SLOW IVP Q2H PRN PRN Reason: SBP > 180 Ondansetron HCl (Zofran) 4 mg IVP Q6H PRN PRN Reason: Nausea/Vomiting Pantoprazole Sodium (Protonix) 40 mg PO DAILY [facility] Last Admin: 01/24/18 08:13 Dose: 40 mg Tamsulosin HCl (Flomax) 0.4 mg PO HS [facility] Last Admin: 01/23/18 23:43 Dose: 0.4 mg
--- NOTE | 2018-01-24 11:47 | PRG ---
DATE OF SERVICE: 01/24/2018 SUBJECTIVE: Mr. Churchill is no longer dysarthric. He answers questions quickly as fluently as he was prior to this event. He has no complaints. I am told that Dr. Garcia discussed anticoagulation with his son yesterday. They have not so far opt ed for anticoagulation. There is a family friend in the room and I have explained to her that his ce rebrovascular accident likely was embolic given his atrial fibrillation. PHYSICAL EXAMINATION: He is afebrile. Blood pressure 118/59, heart rate in the 80s, oximetry is in 90s on room air. IMPRESSION: 1. Status post cerebrovascular accident with TPA given in the emergency department? embolic. 2. Chronic atrial fibrillation. 3. Early dementia. 4. History of reactive airways. 5. History of amiodarone use, no evidence of hypersensitivity. 6. History of prostate cancer, status post radiation. 7. History of perforated viscus requiring laparotomy. PLAN: Continue supportive care. He is stable to go home or to a rehab environment in my opinion.
--- NOTE | 2018-01-24 12:51 | PDOC.CTH ---
Cardiology Progress Note - Subjective No overnight events. Plan for discharge to rehab today. No family available. - Objective Vital Signs Temp Pulse Pulse Pulse Resp BP BP 01/24/18 08:33 79 85 118/61 01/24/18 08:13 81 118/59 L 01/24/18 08:00 98 F 81 20 01/24/18 04:01 97.3 F L 82 20 BP BP Pulse Ox 01/24/18 08:33 124/64 01/24/18 08:13 01/24/18 08:00 118/59 L 93 L 01/24/18 04:01 126/60 94 L Admit Weight 172 lb 6.424 oz Weight 169 lb 1.6 oz 01/23/18 01/24/18 01/25/18 06:59 06:59 06:59 Intake Total 200 1340 500 Output Total 930 300 Balance -730 1040 500 - Physical Examination General/Neuro: NAD Lungs: CTA Heart: RRR Abdomen: soft - Telemetry Telemetry Rhythm: AF - Labs Result Diagrams: 01/23/18 09:12 01/23/18 09:12 Troponin/CKMB CK-MB (CK-2) 1.4 ng/mL (0-6.6) 01/22/18 06:25 Troponin I Less than 0.010 ng/mL (< 0.028) 01/22/18 06:25 - Assessment/Plan 1. Recent CVA 2. Chronic AF 3. Alzheimer's 4. Frequent Falls 5. Hx Prostate CA Patient stable. Ok for transfer to rehab. No family present at this time. Nurse to call and ask regarding decision on OAC prior to transfer. In the past it was declined due to fall and bleeding risk.
[2018-01-24] MEDS: Acetaminophen 325 MG TAB PO PRN (22:02)
[2018-01-24] MEDS: Donepezil HCl 5 MG TAB PO SCH (22:02)
[2018-01-24] MEDS: Tamsulosin HCl 0.4 MG CAP PO SCH (22:02)
[2018-01-24] MEDS: Atorvastatin Calcium 20 MG TAB PO SCH (22:02)
[2018-01-24] MEDS: Apixaban 2.5 MG TAB PO SCH (22:03)
[2018-01-25] MEDS: Apixaban 2.5 MG TAB PO SCH (08:49)
[2018-01-25] MEDS: Docusate 100 MG CAP PO SCH (08:50)
--- NOTE | 2018-01-25 11:25 | PDOC.PN ---
- Subjective Encounter Start Date: 01/25/18 Encounter Start Time: 07:00 Subjective: awake, feels good - Objective Resuscitation Status: Resuscitation Status FULL:Full Resuscitation MAR Reviewed: Yes Vital Signs & Weight: Vital Signs (12 hours) Temp Pulse Resp BP BP Pulse Ox 01/25/18 08:49 80 138/64 01/25/18 07:57 98.7 F 80 16 138/64 94 L 01/25/18 04:00 98.5 F 78 16 119/59 L 94 L 01/25/18 00:05 99.1 F 78 16 135/63 95 Weight Admit Weight 172 lb 6.424 oz Weight 168 lb 6.4 oz Most Recent Monitor Data Heart Rate from ECG 80 NIBP 125/66 NIBP BP-Mean 80 Respiration from ECG 12 SpO2 98 I&O: 01/24/18 01/25/18 01/26/18 06:59 06:59 06:59 Intake Total 1340 620 Output Total 300 100 Balance 1040 520 Result Diagrams: 01/23/18 09:12 01/23/18 09:12 Phys Exam - Physical Examination HEENT: PERRLA, moist MMs Neck: no JVD, supple Respiratory: no wheezing, no rales Cardiovascular: RRR, no significant murmur Gastrointestinal: soft, non-tender, positive bowel sounds Musculoskeletal: no edema, pulses present Neurological: non-focal, moves all 4 limbs Psychiatric: normal affect, A&O x 3 Dx/Plan (1) CVA (cerebrovascular accident) Code(s): I63.9 - CEREBRAL INFARCTION, UNSPECIFIED Status: Acute Qualifiers: CVA mechanism: thrombosis Comment: s/p tpa (2) HTN (hypertension) Code(s): I10 - ESSENTIAL (PRIMARY) HYPERTENSION Status: Chronic Qualifiers: Hypertension type: essential hypertension Qualified Code(s): I10 - Essential (primary) hypertension (3) Dyslipidemia Code(s): E78.5 - HYPERLIPIDEMIA, UNSPECIFIED Status: Chronic (4) Atrial fibrillation Code(s): I48.91 - UNSPECIFIED ATRIAL FIBRILLATION Status: Chronic Qualifiers: Atrial fibrillation type: chronic Qualified Code(s): I48.2 - Chronic atrial fibrillation (5) Dementia Code(s): F03.90 - UNSPECIFIED DEMENTIA WITHOUT BEHAVIORAL DISTURBANCE Status: Chronic Qualifiers: Dementia type: Alzheimer's disease Alzheimer's disease onset: unspecified onset Dementia behavioral disturbance: without behavioral disturbance Qualified Code(s): G30.9 - Alzheimer's disease, unspecified; F02.80 - Dementia in other diseases classified elsewhere without behavioral disturbance; F02.80 - Dementia in other diseases classified elsewhere without behavioral disturbance; F02.80 - Dementia in other diseases classified elsewhere without behavioral disturbance - Plan hemostable -: dc pt to [facility] -: is on low dose eliquis, d/w son at bedside * .
[2018-01-25 11:51] VITALS: BP 133/61; TEMP 97.8
--- NOTE | 2018-01-25 23:54 | DIS ---
DATE OF ADMISSION: 01/22/2018 DATE OF DISCHARGE: 01/25/2018 DISCHARGE DISPOSITION: To [facility]. PRIMARY DISCHARGE DIAGNOSES: Acute cerebrovascular accident, status post TPA with complete resolution. SECONDARY DISCHARGE DIAGNOSES: Chronic atrial fibrillation, hypertension, dyslipidemia, dementia. PROCEDURES DONE DURING HOSPITALIZATION: Patient had CT angio of the brain and neck done on the day of admission, which showed moderate burden of hypodense lesions in the frontoparietal white matter likely due to chronic small vessel ischemic change. These were age indeterminate. 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 MRI done on the same day after TPA showed cerebral volume loss with extensive small vessel disease, no acute infarct was seen. H&H 14 and 41, platelet count 175. Discharge BUN and creatinine is 20 and 1.5. Total cholesterol 124, LDL 61, HDL 48, triglycerides 76. INPATIENT CONSULTS: Dr. Wynne for pulmonary or critical care, Dr. Anselmo Roldan for neurology, Dr. Canchola for cardiology. DISCHARGE MEDICATIONS: Eliquis 2.5 mg twice daily, aspirin 81 mg daily, Cardizem-CD 240 mg daily, donepezil 10 mg p.o. at bedtime, Colace 100 mg daily, Namenda 10 mg p.o. at bedtime and 10 mg p.o. daily, Myrbetriq extended release 25 mg daily, Crestor 10 mg p.o. at bedtime, Flomax 0.4 mg p.o. at bedtime. ALLERGIES: TRAMADOL. DISCHARGE PLAN: Patient to follow up with Dr. Canchola as advised and Dr. Yuli Briones for neurology as advised primary care physician in 1 week. BRIEF COURSE DURING HOSPITALIZATION: Patient initially got admitted on the after he became aphasic and was very confused. He was not making eye contact when he was trying to communicate. The finally called EMS and patient was brought to emergency room. The initial CT angio brain and neck done showed thrombus and was given TPA as he was within the window. He has had subsequent MRI brain done, which did not reveal any infarct after administration of TPA. Patient was later downgraded to telemetry from ICU and has done extremely well. His aphasia has completely resolved. He is ambulating with physical therapy. He has been tolerating oral solid diet. Patient was not on anticoagulation before due to risk of falls and bleeding. After this episode, the family and Dr. Canchola have decided to place him on a small dose of Eliquis twice daily. We will also continue aspirin 81 mg daily. Please note echo with 2D Doppler is pending at present. In view of current stroke, patient is being discharged to swing bed in [place] prior to going home. Please see a [id number] documentation on [facility] for the day of discharge. A total of 35 minutes was spent on discharge plan. All through his stay, his son was given updates. ANDRES
== END 2018-01-25 11:54 | disposition swing bed (61) | DRG 62 ==
LOC: ERS 06:15 → CCU 07:55 → 2SE 01-23 13:34
PROVIDERS: ADMIT Internal Medicine; ATTEND Internal Medicine
DX: I63.9 Cerebral infarction, unspecified (principal); G81.91 Hemiplegia, unspecified affecting right dominant side; R47.01 Aphasia; E78.5 Hyperlipidemia, unspecified; I10 Essential (primary) hypertension; I48.2 Chronic atrial fibrillation; Z85.46 Personal history of malignant neoplasm of prostate; Z92.3 Personal history of irradiation; Z79.82 Long term (current) use of aspirin; Z79.899 Other long term (current) drug therapy; F03.90 Unspecified dementia, unspecified severity, without behavioral disturbance, psychotic disturbance, mood disturbance, and anxiety; Z88.8 Allergy status to other drugs, medicaments and biological substances; K21.9 Gastro-esophageal reflux disease without esophagitis; N40.0 Benign prostatic hyperplasia without lower urinary tract symptoms; Z91.81 History of falling
CPT/HCPCS: 36415; 36416; 70450; 70496; 70498; 70551; 71045; 80048; 80053; 80061; 81003; 82553; 83690; 83735; 84484; 85025; 93005; 93306; 96365; 96366; 96376; G8978-GP-CK; G8979-GP-CI; G8987-GO-CK; G8988-GO-CJ; G8996-GN-CJ; G8997-GN-CI; J2997

== ENCOUNTER 2018-05-07 10:43 | Outpatient (CLI) | payer MEDICARE, OTHER ==
--- NOTE | 2018-05-07 12:14 | RAD ---
CHEST TWO VIEWS: History: Dyspnea. Comparison: 01-12-18 FINDINGS: Cardiac silhouette and pulmonary vasculature are unremarkable. Mediastinum is midline with aortic candy cification. Lungs remain hyperinflated. No confluent airspace consolidation, pneumothorax or pleural fluid. Old fractures and extensive chest wall deformities bilaterally are stable. IMPRESSION: 1. Atherosclerosis. 2. Chronic type findings are stable. POS: H
== END 2018-05-07 10:44 | disposition home or self-care (01) ==
LOC: RAD 10:43
PROVIDERS: ATTEND Internal Medicine Critical Care Medicine
DX: R06.00 Dyspnea, unspecified (principal); I70.90 Unspecified atherosclerosis
CPT/HCPCS: 71046

== ENCOUNTER 2018-05-10 17:36 | Observation (INO) | payer MEDICARE, OTHER ==
[2018-05-10 20:11] LABS: CKMB 1.6 ng/mL (0-6.6); Troponin I Less than 0.010 ng/mL (< 0.028)
[2018-05-10] MEDS ORDERED: Ondansetron HCl/PF 4 MG/2 ML Vial IVP PRN (21:18)
[2018-05-10] MEDS ORDERED: Acetaminophen 325 MG TAB PO PRN (21:18)
[2018-05-10] MEDS ORDERED: Bisacodyl 5 MG TAB PO PRN (21:18)
[2018-05-10] MEDS ORDERED: Sodium Chloride 0.9% 1,000 ML IV SCH (21:30)
[2018-05-10 22:38] VITALS: BMI 22.5
[2018-05-11 04:59] LABS: #Eosinphils 0.3 thou/uL (0.0-0.7); #Lymphocytes 1.4 thou/uL (1.20-3.40); #Monocytes 0.5 thou/uL (0.11-0.59); #Neutrophils 3.3 thou/uL (1.40-6.50); %Basophils 0.6 % (0.0-1.0); %Eosinophils 5.6 % (0.0-10.0); %Lymphocytes 24.5 % (21.0-51.0); %Monocytes 9.7 % (0.0-10.0); %Neutrophils 59.7 % (42.0-75.0); Hemoglobin 12.3 g/dL (14.0-18.0); Mean Corpuscular HGB CONC 32.8 g/dL (32.0-36.0); Mean Platelet Volume 8.6 fL (7.4-10.4); Platelet Count 160 thou/uL (130-400); Red Blood Cell (RBC) Count 3.72 mill/uL (4.70-6.10); White Blood Cell (WBC) Count 5.6 thou/uL (4.8-10.8)
[2018-05-11 05:01] LABS: Albumin 3.3 g/dL (3.4-4.8); Anion Gap 11 mmol/L (10-20); BUN (Urea Nitrogen) 17 mg/dL (8.4-25.7); BUN/Creatinine Ratio 12.69; Calc. Creatinine Clearance 41 mL/min (70-130); Calcium 9.2 mg/dL (7.8-10.44); Carbon Dioxide 21 mmol/L (23-31); Chloride 113 mmol/L (98-107); Estimated GFR-MDRD 50; Glucose 90 mg/dL (83-110); Phosphorus 3.2 mg/dL (2.3-4.7); Sodium 141 mmol/L (136-145)
--- NOTE | 2018-05-11 06:23 | HP ---
CHIEF COMPLAINT: Feeling dizzy and hypotensive. HISTORY OF PRESENT ILLNESS: This is an 88-year-old male with past medical history of dementia, atria l fibrillation, hyperlipidemia, CVA in 2013, presenting with dizziness and hypotension. This patient was brought in by the and per the , the patient's blood pressure has been low in the 80s an d the patient was transferred to [place] and in [place], patient was given fluids and patie nt was sent to our ED because in the past couple of days, the patient was at [place] for a simil ar episode of hypotension and this has become recurrent. Therefore, the ED physician at [place] once the patient to be evaluated in the hospital. Of note, patient states that he has been having d iarrhea for the past 5-6 weeks, but diarrhea has not been resolved per the . The patient denies any fever, headache, nausea, vomiting, chest pain, abdominal pain at this time. REVIEW OF SYSTEMS: Positive for generalized weakness, diarrhea, otherwise as documented in the HPI. All other systems are reviewed and are negative. PAST MEDICAL HISTORY: Dementia, benign prostatic hyperplasia, atrial fibrillation, hyperlipidemia, i schemic cerebrovascular accident in 2013, multiple fractures in the past. FAMILY HISTORY: Reviewed and noncontributory. PAST SURGICAL HISTORY: Hernia repair, right knee repair, and patient had colonoscopy done. PSYCHIATRIC HISTORY: No previous psychiatric history. SOCIAL HISTORY: Patient drinks occasionally. Patient denies illicit drug use. Patient denies any s moking history. FAMILY HISTORY: Reviewed and noncontributory. ALLERGIES: Patient is allergic to TRAMADOL. CURRENT MEDICATIONS: 1. Aspirin 81 mg. 2. Multaq 400 mg. 3. Namenda 10 mg. 4. Calcium 600 mg. 5. Crestor 10 mg. 6. Cardizem 120 mg. 7. Tamsulosin 0.4 mg. PHYSICAL EXAMINATION: VITAL SIGNS: Blood pressure 152/73, heart rate is 67, respiratory rate of 22, oxygen saturation of 9 8 on room air. EK-lead EKG shows first degree AV block with occasional PVCs. LABORATORY DATA: WBC is 5.6, hemoglobin is 12.3, hematocrit is , MCV of 101.0, platelet count i s 160,000. Sodium is 141, potassium 4.0, chloride 113, carbon dioxide of 21, BUN of 17, creatinine i s 1.85. Troponin is less than 0.010. ASSESSMENT AND PLAN: This is an 88-year-old male being admitted for; 1. Hypotension. The patient's blood pressure currently is in the 90s. At this point, we will give gentle hydration. Due to the patient recurrent hypotension and extensive cardiac history, we are goi ng to consult Cardiology to adjust patient's blood pressure medication and also to evaluate the patie nt on his recurrent low blood pressures. At this point, we are assuming the patient's low blood pres sure is likely due to dehydration. Per the history, patient has been having diarrhea. 2. Acute on chronic kidney disease. The patient's creatinine is 1.85. At this time, the patient's acute kidney injury is likely due to dehydration. We will continue gentle hydration. We will monito r the patient. 3. History of atrial fibrillation. We will start patient on home medications. 4. History of dementia. We will start the patient on his home medication. 5. History of benign prostatic hyperplasia. We will start the patient on home medication. 6. Deep vein thrombosis and gastrointestinal prophylaxis. We will continue the patient on his antic oagulation and we will do Pepcid.
[2018-05-11] MEDS: Tamsulosin HCl 0.4 MG CAP PO SCH ×2 (08:48→08:57)
[2018-05-11] MEDS ORDERED: Multivitamin W/ Minerals 1 TAB PO SCH (09:00)
[2018-05-11] MEDS ORDERED: Rosuvastatin 10 MG TAB PO SCH (09:00)
[2018-05-11] MEDS ORDERED: Metamucil PACK PO SCH (09:00)
[2018-05-11] MEDS ORDERED: Docusate 100 MG CAP PO SCH (09:00)
[2018-05-11] MEDS ORDERED: Apixaban 5 MG TAB PO SCH (09:00)
[2018-05-11] MEDS ORDERED: Famotidine 20 MG TAB PO SCH (09:00)
--- NOTE | 2018-05-11 11:43 | PDOC.PN ---
- Subjective Encounter Start Date: 05/11/18 Encounter Start Time: 10:45 Subjective: not dizzy now, no c/o chest pain or palp -: feels better, at bedside -: had 6weeks of diarrheal illness which is resolved now - Objective Resuscitation Status: Resuscitation Status FULL:Full Resuscitation MAR Reviewed: Yes Vital Signs & Weight: Vital Signs (12 hours) Temp Pulse Resp BP BP BP BP 05/11/18 07:21 98.0 F 74 20 125/65 95/53 L 155/73 H 05/11/18 05:03 98.5 F 75 14 132/63 Pulse Ox 05/11/18 07:21 95 05/11/18 05:03 96 Weight Weight 166 lb 1.6 oz I&O: 05/10/18 05/11/18 05/12/18 06:59 06:59 06:59 Intake Total 863 Output Total 800 400 Balance 63 -400 Result Diagrams: 05/11/18 04:30 05/11/18 04:30 Phys Exam - Physical Examination HEENT: PERRLA, moist MMs Neck: no nodes, no JVD Respiratory: no wheezing, no rales Cardiovascular: RRR, no significant murmur Gastrointestinal: soft, non-tender, positive bowel sounds Musculoskeletal: no edema, pulses present Neurological: non-focal, moves all 4 limbs Dx/Plan (1) Orthostasis Code(s): I95.1 - ORTHOSTATIC HYPOTENSION Status: Acute (2) Atrial fibrillation Code(s): I48.91 - UNSPECIFIED ATRIAL FIBRILLATION Status: Chronic Qualifiers: Atrial fibrillation type: chronic (3) Dyslipidemia Code(s): E78.5 - HYPERLIPIDEMIA, UNSPECIFIED Status: Chronic (4) HTN (hypertension) Code(s): I10 - ESSENTIAL (PRIMARY) HYPERTENSION Status: Chronic Qualifiers: Hypertension type: essential hypertension (5) CVA (cerebrovascular accident) Code(s): I63.9 - CEREBRAL INFARCTION, UNSPECIFIED Status: Chronic Qualifiers: CVA mechanism: unspecified Qualified Code(s): I63.9 - Cerebral infarction, unspecified Comment: h/o tpa given in 01/2018 (6) Dysphagia Code(s): R13.10 - DYSPHAGIA, UNSPECIFIED Status: Chronic (7) BPH (benign prostatic hyperplasia) Code(s): N40.0 - BENIGN PROSTATIC HYPERPLASIA WITHOUT LOWER URINRY TRACT SYMP Status: Chronic Qualifiers: Lower urinary tract symptom presence: unspecified whether lower urinary tract symptoms present Qualified Code(s): N40.0 - Benign prostatic hyperplasia without lower urinary tract symptoms (8) Dementia Code(s): F03.90 - UNSPECIFIED DEMENTIA WITHOUT BEHAVIORAL DISTURBANCE Status: Chronic Qualifiers: Dementia type: unspecified type Dementia behavioral disturbance: without behavioral disturbance Qualified Code(s): F03.90 - Unspecified dementia without behavioral disturbance - Plan has persistent orthostasis, continue iv fluids -: change flomax to QHS -: continue asp, eliquis as before -: dc plan when orthostasis resolves -: oral diet, d/w and pt at bedside * . Review of Systems - Medications/Allergies Allergies/Adverse Reactions: Allergies Allergy/AdvReac Type Severity Reaction Status Date / Time tramadol HCl [From Ultra] AdvReac Intermediate Verified 05/10/18 22:54 Medications: Current Medications Acetaminophen (Tylenol) 650 mg PO Q4H PRN PRN Reason: Headache/Fever/Mild Pain (1-3) Apixaban (Eliquis) 2.5 mg PO BID [facility] Last Admin: 05/11/18 08:47 Dose: 2.5 mg Aspirin (Aspirin Chewable) 81 mg PO DAILY [facility] Last Admin: 05/11/18 08:48 Dose: 81 mg Bisacodyl (Dulcolax) 10 mg PO DAILYPRN PRN PRN Reason: Constipation Donepezil HCl (Aricept) 10 mg PO HS [facility] Famotidine (Pepcid) 20 mg PO QAM [facility] Last Admin: 05/11/18 08:48 Dose: 20 mg Sodium Chloride (Normal Saline 0.9%) 1,000 mls @ 60 mls/hr IV .[id number] [facility] Last Admin: 05/10/18 23:56 Dose: 1,000 mls Iron/Minerals/Multivitamins (Theragran M) 1 tab PO DAILY [facility] Last Admin: 05/11/18 08:48 Dose: 1 tab Memantine (Namenda) 10 mg PO DAILY [facility] Last Admin: 05/11/18 08:48 Dose: 10 mg Mirabegron (Myrbetriq Er) 25 mg PO DAILY [facility] Last Admin: 05/11/18 08:49 Dose: Not Given Ondansetron HCl (Zofran) 4 mg IVP Q6H PRN PRN Reason: Nausea/Vomiting Psyllium Hydrophilic Mucilloid (Metamucil) 1 pk PO DAILY [facility] Last Admin: 05/11/18 08:48 Dose: 1 pk Rosuvastatin Calcium (Crestor) 10 mg PO DAILY [facility] Last Admin: 05/11/18 08:48 Dose: 10 mg Sodium Chloride (Flush - Normal Saline) 10 ml IVF Q12HR PRN PRN Reason: Saline Flush Tamsulosin HCl (Flomax) 0.4 mg PO BID [facility] Last Admin: 05/11/18 08:57 Dose: Not Given
[2018-05-11 11:59] VITALS: TEMP 97.7
[2018-05-11 14:20] VITALS: BP 134/60
[2018-05-11] MEDS ORDERED: Dronedarone HCl 400 MG TAB PO SCH (17:00)
[2018-05-11] MEDS ORDERED: Donepezil HCl 10 MG TAB PO SCH (21:00)
[2018-05-11] MEDS ORDERED: Tamsulosin HCl 0.4 MG CAP PO SCH ×2 (21:00)
--- NOTE | 2018-05-11 21:25 | CON ---
DATE OF CONSULT: 05/11/18 HISTORY OF PRESENT ILLNESS: The patient is a very pleasant 88-year-old gentleman who suffered a cerebrovascular accident and presented with dizziness and hypotension. The patient has a previous history of a large cerebrovascular accident. He also has a history of dementia. The patient for the past several weeks has had persistent diarrhea. He has been admitted on several medications which have not been helping. He has persistent diarrhea. The patient presented to the emergency room extremely weak. The patient denied having any chest discomfort. PAST MEDICAL HISTORY: 1. Cerebrovascular accident. 2. History of atrial fibrillation. 3. Dementia. 4. Hyperlipidemia. PAST SURGICAL HISTORY: Hernia surgery and knee replacement. SOCIAL HISTORY: Nonsmoker. FAMILY HISTORY: No strong family history of heart disease. ALLERGIES: TRAMADOL. MEDICATIONS ON ADMISSION; Cardizem 120 daily, Flomax 0.4 two tablets daily, Crestor 10 at bedtime, calcium 600 daily, Namenda 10 b.i.d., Multaq 400 b.i.d., aspirin 81 daily. Apixaban 2.5 b.i.d., aspirin 81 daily, Crestor 10 at bedtime. REVIEW OF SYSTEMS He has a history of easy bruising or bleeding, bright red blood per rectum. PHYSICAL EXAMINATION: GENERAL: Well-developed gentleman in no acute distress. VITAL SIGNS: Blood pressure 155/73 supine, 125/65, sitting and 95/53 standing. NECK: Showed no jugular distention. LUNGS: Clear to auscultation. HEART: Regular rate and rhythm, normal S1, S2, no murmurs. ABDOMEN: Nondistended. EXTREMITIES: No edema. LABORATORY RESULTS: White blood count 5.6, hemoglobin 12.3, hematocrit 37.4, platelets 160. Sodium was 141, potassium 4.0, chloride 113, bicarbonate 21, BUN 17, creatinine is 1.34. His EKG revealed normal sinus rhythm, left anterior fascicular block and occasional premature ventricular contractions. IMPRESSION: 1. Severe orthostatic hypotension. 2. Diarrhea. 3. History of cerebrovascular accident. 4. History of atrial fibrillation. 5. Dementia. This gentleman with hypotension and diarrhea. He is markedly orthostatic. From a cardiac standpoint, I would decrease the dose of his Flomax and discontinue Cardizem. Would maintain the patient on Multaq to hopefully maintain sinus rhythm. We will follow this patient with you through his hospitalization. [facility]
--- NOTE | 2018-05-12 20:22 | DIS ---
DATE OF ADMISSION: 05/11/2018 DATE OF DISCHARGE: 05/11/2018 PRIMARY DISCHARGE DIAGNOSIS: Orthostatic hypotension, resolving. SECONDARY DISCHARGE DIAGNOSES: Chronic atrial fibrillation, dyslipidemia, hypertension, history of c erebrovascular accident, benign prostatic hypertrophy, dementia. PROCEDURES DONE DURING HOSPITALIZATION: Chest x-ray done on the day of admission showed no acute pro cess. CT brain without contrast done showed chronic findings with no acute intracranial abnormalitie s. Blood cultures x2 no growth. Urine culture no growth. H&H 12 and 37, white count of 5.6, platel et count 160. Discharge BUN and creatinine 17 and 1.3. Troponin x2 negative. BNP was 202. DISCHARGE MEDICATIONS: Multaq 400 mg p.o. twice daily, Namenda 10 mg twice daily, multivitamin 1 tab once daily, Crestor 10 mg p.o. at bedtime, Eliquis 2.5 mg p.o. twice daily, aspirin 81 mg p.o. daily , Flomax 0.4 mg p.o. at bedtime. ALLERGIES: ULTRAM. DISCHARGE PLAN: The patient to follow up with primary care physician in 1 week. BRIEF COURSE DURING HOSPITALIZATION: The patient initially was transferred from [facility] afte r he felt dizzy and was hypotensive at home. His systolic blood pressures were apparently dropping d own into 80s at home. The patient normally ambulates very minimally in the house. He had also menti oned that he has had diarrheal illness for the last 5-6 weeks prior to arrival. This had completely resolved on arrival. Also, the patient was on Flomax twice daily and Cardizem CD as well. These med ications were discontinued. The patient had positive orthostasis. He was gently hydrated with IV fl uids during his stay here. He is hemodynamically stable. His blood and urine cultures have been neg ative. Please see a [id number] documentation on [facility] for discharge. Dr. Mills evaluated pa m for Cardiology as well. Per Dr. Mills's advice, his Cardizem CD has been discontinued and he ne eds to continue Multaq as before. His Flomax has been changed over to 0.4 mg at bedtime and his was given updates as well at bedside.
== END 2018-05-11 15:08 | disposition home or self-care (01) ==
LOC: ERS 17:36 → 2SW 22:05
PROVIDERS: ADMIT Internal Medicine; ATTEND Internal Medicine
DX: I95.1 Orthostatic hypotension (principal); F03.90 Unspecified dementia, unspecified severity, without behavioral disturbance, psychotic disturbance, mood disturbance, and anxiety; I48.2 Chronic atrial fibrillation; N40.0 Benign prostatic hyperplasia without lower urinary tract symptoms; E78.5 Hyperlipidemia, unspecified; N18.9 Chronic kidney disease, unspecified; N17.9 Acute kidney failure, unspecified; R19.7 Diarrhea, unspecified; Z86.73 Personal history of transient ischemic attack (TIA), and cerebral infarction without residual deficits; Z79.82 Long term (current) use of aspirin; Z79.899 Other long term (current) drug therapy; Z88.5 Allergy status to narcotic agent
CPT/HCPCS: 80069; 82553; 84484; 85025; 93005; 94760; 96360; 96361; 99285; G0378 ×2; 36415

== ENCOUNTER 2019-09-03 21:03 | Inpatient (IN) | payer MEDICARE, OTHER ==
[2019-09-03] MEDS ORDERED: Aspirin 325 MG TAB ONE (21:24)
[2019-09-03] MEDS ORDERED: Furosemide 20 MG/2 ML VIAL ONE (21:24)
--- NOTE | 2019-09-03 21:26 | PDOC.HHP ---
Hospitalist HPI - History of Present Illness History of Present Illness: elevated troponin new chf CKD pna x 2 weeks with azithromycin x 2 times increased WOB no hypoxia got augmentin and lasix aat outside ED
[2019-09-03] MEDS ORDERED: Acetaminophen 325 MG TAB PO PRN (23:24)
[2019-09-03] MEDS ORDERED: Acetaminophen 650 MG Suppository PR PRN (23:24)
[2019-09-04 00:56] LABS: Albumin 3.2 g/dL (3.4-4.8); Anion Gap 8 mmol/L (10-20); BUN (Urea Nitrogen) 23 mg/dL (8.4-25.7); BUN/Creatinine Ratio 13.07; Calc. Creatinine Clearance 0 mL/min (70-130); Calcium 8.1 mg/dL (7.8-10.44); Carbon Dioxide 27 mmol/L (23-31); Chloride 113 mmol/L (98-107); Estimated GFR-MDRD 37; Glucose 194 mg/dL (83-110); Phosphorus 3.2 mg/dL (2.3-4.7); Potassium 3.7 mmol/L (3.5-5.1); Sodium 144 mmol/L (136-145)
[2019-09-04 01:02] LABS: Troponin I 0.078 ng/mL (< 0.028)
[2019-09-04 03:10] LABS: #Eosinphils 0.2 thou/uL (0.0-0.7); #Lymphocytes 1.9 thou/uL (1.20-3.40); #Monocytes 0.7 thou/uL (0.11-0.59); #Neutrophils 3.2 thou/uL (1.40-6.50); %Basophils 0.4 % (0.0-1.0); %Eosinophils 3.7 % (0.0-10.0); %Lymphocytes 31.7 % (21.0-51.0); %Neutrophils 53.2 % (42.0-75.0); Hemoglobin 9.3 g/dL (14.0-18.0); Mean Corpuscular HGB CONC 31.9 g/dL (32.0-36.0); Mean Corpuscular Hemoglobin 28.5 pg (27.0-31.0); Mean Corpuscular Volume 89.1 fL (78.0-98.0); Mean Platelet Volume 8.8 fL (7.4-10.4); Platelet Count 158 thou/uL (130-400); RBC Distribution Width 14.4 % (11.5-14.5); Red Blood Cell (RBC) Count 3.25 mill/uL (4.70-6.10); White Blood Cell (WBC) Count 6.1 thou/uL (4.8-10.8)
[2019-09-04 03:37] LABS: Troponin I 0.095 ng/mL (< 0.028)
[2019-09-04 03:39] LABS: Anion Gap 12 mmol/L (10-20); BUN (Urea Nitrogen) 22 mg/dL (8.4-25.7); Calc. Creatinine Clearance 0 mL/min (70-130); Calcium 8.3 mg/dL (7.8-10.44); Carbon Dioxide 24 mmol/L (23-31); Chloride 115 mmol/L (98-107); Estimated GFR-MDRD 42; Glucose 106 mg/dL (83-110); Potassium 3.6 mmol/L (3.5-5.1); Sodium 147 mmol/L (136-145)
--- NOTE | 2019-09-04 03:50 | HP ---
TIME OF ASSESSMENT: 2199. CHIEF COMPLAINT: Shortness of breath. HISTORY OF PRESENT ILLNESS: Mr. Churchill is a pleasant 89-year-old gentleman who lives at home with his family, presenting with shortness of breath since yesterday with minimal exertion and complaints of orthopnea that started last night. The patient apparently was treated for bronchitis one week ago with Z-Moris by his PCP, Dr. Go. He has had progressively worsening shortness of breath with exertion and returned to see his PCP yesterday and was started on another course of Z-Moris. Last night, he apparently had difficulty sleeping and complained of shortness of breath while lying flat. Once he was upright, he was able to rest better. He does have caregivers, who provide constant care and support from his family. He normally is able to walk independently with the help of a walker, but has required assistance over the last 2 to 3 days and has been weaker than usual. ED COURSE: The patient initially presented to [facility], where he underwent laboratory studies showing white count of 5.5, hemoglobin of 9, hematocrit 29.6, platelets of 167. His BUN is 23, creatinine 1.76, mildly bumped from baseline and his GFR was essentially stable at 37. Remaining labs notable for a significantly elevated BNP of 1433.4. Troponin was indeterminate at 0.081 and repeat troponin was 0.090. He had a chest x-ray done, which demonstrated cardiomegaly with chronic appearing lung changes. He was felt to have changes consistent with superimposed edema. There was blunting to the left costophrenic angle suggesting a small left effusion. The patient was treated with 20 mg of Lasix. He is also given of aspirin. PAST MEDICAL HISTORY: 1. CVA in 2013. 2. CKD. 3. Atrial fibrillation. 4. Hyperlipidemia. PAST SURGICAL HISTORY: None. SOCIAL HISTORY: The patient lives with his family. No tobacco use or alcohol consumption. ALLERGIES: NO KNOWN DRUG ALLERGIES. CURRENT MEDICATIONS: 1. Tamsulosin. 2. Crestor. 3. Calcium. 4. Namenda. 5. Multaq. 6. Aspirin. 7. Midodrine. 8. Eliquis. PHYSICAL EXAMINATION: GENERAL: The patient appears well-developed and in no acute distress. VITAL SIGNS: Temperature 98.1, pulse 72, blood pressure 141/82, respirations 18, O2 saturation 99% on 2 L of oxygen by nasal cannula. HEENT: Normocephalic and atraumatic. The patient is hard of hearing. Oropharynx is clear. NECK: Supple. LUNGS: Reduced breath sounds at the bilateral bases. EXTREMITIES: No lower leg swelling or edema. NEUROLOGIC: Alert and oriented x3. SKIN: Warm and dry. INVESTIGATIONS: As mentioned above in HPI. IMPRESSION AND PLAN: Mr. Churchill is a pleasant 89-year-old gentleman, who presents with complaints of shortness of breath. He is being admitted for management of the following. 1. Congestive heart failure exacerbation. The patient is given Lasix 20 mg IV in the emergency department. He has an elevated BNP of 1400. He is a patient of Dr. Canchola and last echocardiogram was possibly a year ago. We will obtain an echo and place a consult to Cardiology. We will continue Lasix 20 mg IV daily. According to the family, he does not take Lasix at home. The patient's family is requesting a consultation with Dr. Turner of Pulmonology as well, whom they states they follow very closely with and want to ensure he is involved in his care given the fact that he is having trouble with his breathing. Consultation placed. 2. Chronic kidney disease. Continue to monitor renal function closely. Appear stable at this present time. 3. History of atrial fibrillation, on anticoagulation with Eliquis. Resume once verified. 4. Hyperlipidemia. Resume home medications once verified. 5. Urinary frequency. Obtain urinalysis and urine culture. The patient has known BPH. 6. Elevated troponin. Continue to trend troponin. He denies any chest pain. Was given 325 mg of aspirin in the emergency department. 7. Gastrointestinal prophylaxis with famotidine. 8. Deep venous thrombosis prophylaxis with mechanical SCDs. PT/OT consult placed. 9. Code status is full. Surrogate decision maker is his , Constance Churchill. Case was discussed with attending, who agrees with plan of care as described above. Job ID: [id number]
[2019-09-04] MEDS ORDERED: Furosemide 20 MG/2 ML VIAL SLOW IVP SCH ×3 (06:00→14:00)
--- NOTE | 2019-09-04 08:00 | CT ---
PRELIMINARY REPORT/[facility]/EMERGENCY AFTER HOURS PROCEDURE: PROCEDURE: CT Chest without IV Contrast Material. HISTORY: Abnormal chest x-ray and short of breath. Rule out pneumonia. TECHNIQUE: Axial images were performed without IV contrast with multiplanar reconstructions. COMPARISON: None . TECHNICAL QUALITY: Satisfactory . FINDINGS: Moderate atherosclerosis and tortuosity thoracic aorta with aneurysmal dilatation of the as cending aorta at 4.2 cm with no rupture or leakage. Scattered small mediastinal lymph nodes. Cardiomegaly with small pericardial effusion at the base of the heart. Small bilateral pleural effusi ons with compressive atelectasis lung bases. Linear scar versus discoid atelectasis both lung bases. No definite consolidation suggesting pneumonia. No pulmonary masses. Some fluid in the supe rior major fissure on the RIGHT consistent with pseudomass. Visualized upper abdomen is unremarkable. No acute bony abnormality. IMPRESSION: No evidence of pneumonia. Bilateral pleural effusions and compressive atelectasis. Cardiomegaly and small pericardial effusion. Uncomplicated aneurysm ascending aorta. ELECTRONICALLY SIGNED BY: Casper Ortega MD Sep 04, 2019 4:55:21 AM ANIMAL TREATMENT INVESTIGATOR FINAL REPORT EMERGENT AFTER HOURS NONCONTRAST CT THORAX: HISTORY: Abnormal chest x-ray and shortness of breath. Cough. COMPARISON: 04/07/2019. IMPRESSION: 1. Small bilateral pleural effusions and associated passive atelectasis greater on the left. 2. Nodular densities in the superior aspect of the right major fissure likely related to pseudomass s econdary to loculated pleural fluid in the major fissure. 3. Mild increase in the interstitium compared to prior exam which could be related to an element of m ild pulmonary edema. 4. Mild aneurysmal dilatation ascending thoracic aorta which measures 4.5 cm in diameter. Vascular ca lcifications are seen in the thoracic aorta as well as in the coronary arteries. 5. Cardiomegaly with trace pericardial effusion. 6. Remote healed right-sided rib fractures. 7. Mild increase in number of mediastinal lymph nodes, but no enlarged lymph nodes are seen by CT siz e criteria. 8. Findings are in agreement with the preliminary report by [facility]. Transcribed Date/Time: 09/04/2019 8:23 AM
[2019-09-04] MEDS ORDERED: Famotidine/PF 20 mg/2ml Vial SLOW IVP SCH (09:00)
[2019-09-04] MEDS ORDERED: Furosemide 20 MG/2 ML VIAL ONE (10:00)
[2019-09-04] MEDS ORDERED: Acetaminophen 325 MG TAB PO PRN (10:00)
[2019-09-04] MEDS ORDERED: Dronedarone HCl 400 MG TAB PO SCH (10:15)
[2019-09-04] MEDS ORDERED: Apixaban 2.5 MG TAB PO SCH (10:15)
[2019-09-04] MEDS ORDERED: Aspirin Chewable 81 MG TAB PO SCH (10:15)
[2019-09-04] MEDS ORDERED: Polyethylene Glycol 3350 17 GM Packet PO PRN (10:17)
[2019-09-04] MEDS ORDERED: Calcium Carbonate 500 MG ChewTAB PO PRN (11:14)
[2019-09-04] MEDS: Midodrine HCl 5 MG TAB PO SCH ×2 (11:37→20:18)
--- NOTE | 2019-09-04 11:38 | PRG ---
DATE OF SERVICE: 09/04/2019 SUBJECTIVE: The patient is an 89-year-old male with chronic atrial fibrillation and diastolic heart failure, presented to the hospital last night with shortness of breath. Please refer to the history and physical by Alma Rodriguez for further details. The patient had a CT chest, that was negative for pneumonia. He was started on IV Lasix for congestive heart failure exacerbation. REVIEW OF SYSTEMS: The patient denies any nausea or vomiting. Shortness of breath has somewhat improved. No chest pain, palpitations, or syncope reported. PHYSICAL EXAMINATION: VITAL SIGNS: Current vital signs showed temperature 98.5, respirations of 20, pulse rate of 81, O2 saturation 96% on 2 L nasal cannula, and blood pressure of 132/73. GENERAL: An 89-year-old male, in mild respiratory distress, able to complete short phrases. HEENT: Head, atraumatic and normocephalic. Sclerae anicteric. No oral lesion. NECK: Supple. No significant JVP elevation. No carotid bruit. LUNGS: Bibasilar rhonchi with scattered rales. Minimal accessory muscle use. No significant wheezing. HEART: S1 and S2 present. Regular rate and rhythm. No rubs or gallops. ABDOMEN: Soft and nontender. Bowel sounds present. No rebound or guarding. EXTREMITIES: No edema or calf tenderness. NEUROLOGIC: At baseline. PSYCHIATRIC: The patient is alert and awake. He is hard of hearing. LABORATORY FINDINGS: CBC showed WBC 6.1 with hemoglobin 9.3, hematocrit 29, and platelet of 158. Chemistry showed sodium 144, potassium 3.7, chloride 113, bicarbonate of 27, BUN 23, and creatinine 1.76. Troponin of 0.090. Magnesium 2.3. BNP was 1433. Chest x-ray by my review showed pulmonary vascular congestion. CT scan of the chest by my review showed pulmonary vascular congestion with bilateral pleural effusion. Telemetry monitoring by my review showed sinus rhythm. IMPRESSION: 1. Acute hypoxic respiratory failure secondary to [id number] diastolic heart failure exacerbation (present on admission). 2. Paroxysmal atrial fibrillation, on anticoagulation. 3. Bilateral pleural effusion secondary to congestive heart failure. 4. 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 5. History of cerebrovascular accident. 6. Dementia. 7. Hyperlipidemia. 8. History of orthostatic hypotension, on midodrine and fludrocortisone. 9. Benign prostatic hypertrophy. 10. Chronic kidney disease, stage 3. 11. Type 2 myocardial infarction, present on admission. PLAN: The patient is currently on 20 mg IV Lasix. Due to history of orthostatic hypotension, we will continue current dose. The family is upset since none of his home medications have been restarted. I verified all of the medications with the family. I even spoke to the patient's DPOA in [place]. The patient will be restarted on Eliquis, Multaq, Namenda, Crestor, aspirin, and Flomax. We will hold fludrocortisone for now. Depending on his blood pressure, we may have to restart. We will recheck labs on a daily basis. Echocardiogram has been done, report pending at this time. Cardiology and Pulmonary have been consulted. We will continue physical therapy and occupational therapy. We will add O2 humidification. The patient and the family understands the above plan of care. Job ID: [id number]
--- NOTE | 2019-09-04 13:25 | CON ---
DATE OF CONSULTATION: 09/04/2019 REASON FOR CONSULTATION: Hypoxic respiratory failure related to congestive heart failure. HISTORY OF PRESENT ILLNESS: Mr. Eunice Churchill is a pleasant 89-year-old who came to the hospital last night complaining of shortness of breath. He was found to have bilateral pleural effusions and pulmonary edema consistent with heart failure. He also had a BNP of 1400. He was started on diuretics, has improved his breathing and now has no acute complaints. PAST MEDICAL HISTORY: 1. Diastolic congestive heart failure. 2. Stroke. 3. Chronic kidney disease. 4. Atrial fibrillation. 5. Hyperlipidemia. 6. Trauma with multiple fractures. PAST SURGICAL HISTORY: 1. Colonoscopy. 2. Prostate radiation. 3. Laparoscopy for perforated colon. MEDICATIONS: Prior to admission; tamsulosin, Crestor, Namenda, calcium, Multaq, aspirin, midodrine, and Eliquis. ALLERGIES: NONE. SOCIAL HISTORY: Nonsmoker, does not consume alcohol. Does not use illicit drugs. REVIEW OF SYSTEMS: Twelve-point review of systems is otherwise negative. PHYSICAL EXAMINATION: VITAL SIGNS: O2 saturation currently 98% on 2 L nasal cannula, respirations 20, blood pressure 125/61, and pulse 69. GENERAL: He is awake and alert, in no distress. HEENT: Unremarkable. NECK: No adenopathy or JVD. LUNGS: Slightly diminished breath sounds at both bases. No wheezing. CARDIAC: S1 and S2. Irregularly irregular. No murmur. ABDOMEN: Soft and nontender to palpation. EXTREMITIES: No clubbing, cyanosis, or edema. LABORATORY DATA: White blood cell count 6.1, hematocrit 29, and platelet count 158. Sodium 147, potassium 3.6, chloride 115, CO2 of 24, BUN 22, creatinine 1.5, and glucose 106. BNP 1433. CT of the chest was reviewed, showed bilateral small effusions. ASSESSMENT: 1. Acute diastolic congestive heart failure. 2. Acute hypoxic respiratory failure secondary to the congestive heart failure. PLAN: He seems to have improved immensely after receiving IV diuretics. I do not think he needs thoracentesis performed on either lung. I spoke with family at bedside. I will inform Dr. Turner of the patient's admission. Job ID: [id number]
[2019-09-04 14:54] VITALS: BMI 23.1
[2019-09-04 15:35] LABS: Bacteria/HPF None Seen HPF (None Seen); Bilirubin Negative (Negative); Blood, Urine Negative (Negative); Clarity Clear (Clear); Glucose, Urine (Dipstick) Normal (Negative); Leukocyte Negative Leu/uL (Negative); Nitrite Negative (Negative); Protein, Urine (Dipstick) Negative (Neg-Trace); RBC/HPF 0-3 HPF (0-3); Squamous Epithelial None Seen HPF (0-3); Urobilinogen Normal mg/dL (Less than 2); WBC/HPF 0-3 HPF (0-3)
[2019-09-04 15:38] LABS: Urine Culture Reflex No No
[2019-09-04] MEDS: Dronedarone HCl 400 MG TAB PO SCH (18:06)
[2019-09-04] MEDS: Budesonide 0.5 MG/2 ML NEB INH SCH (19:21)
[2019-09-04] MEDS: Calcium Carbonate + Vit D 1 TAB PO SCH (20:18)
[2019-09-04] MEDS: Apixaban 5 MG TAB PO SCH (20:18)
[2019-09-04] MEDS: Rosuvastatin 5 MG TAB PO SCH (20:18)
[2019-09-04] MEDS: Tamsulosin HCl 0.4 MG CAP PO SCH (20:18)
[2019-09-04] MEDS: Senokot S 8.6-50 MG TAB PO SCH (20:18)
[2019-09-04] MEDS ORDERED: Rosuvastatin 10 MG TAB PO SCH (21:00)
[2019-09-04] MEDS ORDERED: Apixaban 5 MG TAB PO SCH (21:00)
[2019-09-05 04:54] LABS: #Eosinphils 0.2 thou/uL (0.0-0.7); #Lymphocytes 1.6 thou/uL (1.20-3.40); #Monocytes 0.7 thou/uL (0.11-0.59); #Neutrophils 3.9 thou/uL (1.40-6.50); %Basophils 0.5 % (0.0-1.0); %Eosinophils 2.6 % (0.0-10.0); %Lymphocytes 24.6 % (21.0-51.0); %Monocytes 10.6 % (0.0-10.0); %Neutrophils 61.7 % (42.0-75.0); Hemoglobin 9.5 g/dL (14.0-18.0); Mean Corpuscular HGB CONC 31.4 g/dL (32.0-36.0); Mean Corpuscular Hemoglobin 28.1 pg (27.0-31.0); Mean Corpuscular Volume 89.4 fL (78.0-98.0); Platelet Count 168 thou/uL (130-400); RBC Distribution Width 14.4 % (11.5-14.5); Red Blood Cell (RBC) Count 3.37 mill/uL (4.70-6.10); White Blood Cell (WBC) Count 6.4 thou/uL (4.8-10.8)
[2019-09-05 05:07] LABS: ALT (SGPT) Less than 7 U/L (8-55); AST (SGOT) 16 U/L (5-34); Albumin 3.2 g/dL (3.4-4.8); Alkaline Phosphatase 64 U/L (40-110); Anion Gap 10 mmol/L (10-20); BUN (Urea Nitrogen) 19 mg/dL (8.4-25.7); Bilirubin, Total 0.7 mg/dL (0.2-1.2); Calc. Creatinine Clearance 34 mL/min (70-130); Calcium 8.4 mg/dL (7.8-10.44); Carbon Dioxide 27 mmol/L (23-31); Chloride 111 mmol/L (98-107); Estimated GFR-MDRD 41; Globulin 2.4 g/dL (2.4-3.5); Glucose 95 mg/dL (83-110); Potassium 3.8 mmol/L (3.5-5.1); Protein, Total 5.6 g/dL (5.8-8.1); Sodium 144 mmol/L (136-145)
[2019-09-05] MEDS ORDERED: Furosemide 20 MG/2 ML VIAL SLOW IVP SCH (09:00)
[2019-09-05] MEDS: Midodrine HCl 5 MG TAB PO SCH ×3 (09:12→20:20)
[2019-09-05] MEDS: Budesonide 0.5 MG/2 ML NEB INH SCH ×2 (09:12→19:50)
[2019-09-05] MEDS: Senokot S 8.6-50 MG TAB PO SCH ×2 (09:13→20:21)
[2019-09-05] MEDS: Dronedarone HCl 400 MG TAB PO SCH ×2 (09:13→20:18)
[2019-09-05] MEDS: Apixaban 5 MG TAB PO SCH ×2 (09:14→20:19)
[2019-09-05] MEDS: Multivit, Therapeutic 1 TAB PO SCH (09:15)
[2019-09-05] MEDS: Aspirin Chewable 81 MG TAB PO SCH (09:15)
--- NOTE | 2019-09-05 11:24 | PRG ---
DATE OF SERVICE: 09/05/2019 SUBJECTIVE: Mr. Churchill was evaluated. OBJECTIVE: VITAL SIGNS: He is afebrile, heart rate 72, respiratory rate is 18, oximetry is 94% on 2 L, and blood pressure 108/55. LUNGS: Clear. HEART: Regular rhythm. ABDOMEN: Soft and nontender. EXTREMITIES: With only trace edema. LABORATORY DATA: White count 6.4, hemoglobin 9.5, and platelets 168. Sodium 144, potassium 3.8, chloride 111, bicarb 27, BUN 19, and creatinine 1.6. Intake and output not recorded. His weight is reported as being the same as yesterday, which I doubt. IMPRESSION: 1. Respiratory distress secondary to congestive heart failure. 2. Chronic kidney disease. 3. Advanced age. 4. Anemia. I have recommended to the daughter that they discuss code status with family. I do not feel that is an imminent issue, but I have also explained to her that at 89 years of age the code would break all of his ribs and not increase his chance of surviving to be discharged home. His die attaching machine tender will be seeing him in today, I am told. We will follow along with the other physicians caring for him. Overall, he appears clinically improved. Job ID: [id number]
[2019-09-05] MEDS ORDERED: Midodrine HCl 5 MG TAB PO PRN (16:21)
--- NOTE | 2019-09-05 17:15 | PRG ---
DATE OF SERVICE: 09/05/2019 SUBJECTIVE: Mr. Churchill feels better overall. No current complaints. His shortness of breath is improved. OBJECTIVE: VITAL SIGNS: Blood pressure 106/51, pulse 18, temperature 98.7. GENERAL: Patient is a pleasant male who is in no acute distress. The patient appears their stated age. NEUROLOGIC: The patient is alert and oriented x3 with no focal neurologic deficits. HEENT: Sclerae without icterus. Mouth has moist mucous membranes with normal pallor. NECK: No JVD. Carotid upstroke brisk. No bruits bilaterally. LUNGS: Minimal crackles. Improved versus yesterday. BACK: No scoliosis or kyphosis. CARDIAC: Regular rate and rhythm with normal S1 and S2. No S3 or S4 noted. No significant rubs, murmurs, thrills, or gallops noted throughout the precordium. PMI is not displaced. There is no parasternal heave. ABDOMEN: Soft, nontender, nondistended. No peritoneal signs present. No hepatosplenomegaly. No abnormal striae. EXTREMITIES: 2+ femoral and 2+ dorsalis pedis pulses. No cyanosis, clubbing, or edema. SKIN: No gross abnormalities. LABORATORY DATA: Pertinent labs: Creatinine 1.6, chloride 111. IMPRESSION: 1. Acute on chronic systolic heart failure. 2. Paroxysmal atrial fibrillation. 3. Bronchitis. 4. Dementia. 5. Orthostatic hypotension. RECOMMENDATIONS: Continue current course. The patient is currently on Eliquis for previous CVA. Continue aspirin given a previous abnormal stress test. We will also recommend continuing low-dose Flonase in addition to Multaq. After reviewed his echo, his LVEF is at 30% to 35%. His LVEF has been above 35% in the past. We will need to discuss potential LifeVest but given his underlying dementia, may not be a good candidate. Job ID: [id number]
--- NOTE | 2019-09-05 18:28 | PDOC.HOSPP ---
- Subjective Encounter Date: 09/05/19 Encounter Time: 16:00 Subjective: Patient seen and examined for resp failure. Remains on O2. SOB improving. No CP. No new complaints. No overnight events - Objective Vital Signs & Weight: Vital Signs (12 hours) Temp Pulse Pulse Pulse Resp BP BP 09/05/19 16:20 97.9 F 62 14 09/05/19 13:11 69 67 106/59 L 103/57 L 09/05/19 12:00 98.2 F 74 18 09/05/19 09:12 72 12 09/05/19 08:14 97.9 F 72 18 BP Pulse Ox Pulse Ox 09/05/19 16:20 112/57 L 93 L 09/05/19 13:11 98 09/05/19 12:00 112/58 L 94 L 09/05/19 09:12 09/05/19 08:14 108/55 L 94 L Weight Weight 170 lb 4.8 oz I&O: 09/04/19 09/05/19 09/06/19 06:59 06:59 06:59 Intake Total 240 720 Output Total 300 Balance 240 420 Result Diagrams: 09/05/19 04:23 09/05/19 04:23 Radiology Reviewed by me: No (Echo - EF 30-35%) EKG Reviewed by me: Yes (Tele SR) Hospitalist ROS - Review of Systems Cardiovascular: reports: orthopnea. denies: chest pain, palpitations, paroxysmal noc. dyspnea, edema, light headedness, other Gastrointestinal: denies: nausea, vomiting, abdominal pain, diarrhea, constipation, melena, hematochezia, other - Medication Medications: Active Medications Generic Name Dose Route Start Last Admin Trade Name Freq PRN Reason Stop Dose Admin Apixaban 2.5 mg 09/04/19 21:00 09/05/19 09:14 Eliquis PO 2.5 mg BID ОЛЕГ Administration Aspirin 81 mg 09/05/19 09:00 09/05/19 09:15 Aspirin Chewable PO 81 mg DAILY ОЛЕГ Administration Budesonide 0.5 mg 09/04/19 18:30 09/05/19 09:12 Pulmicort Neb Solution INH 0.5 mg BID-RT ОЛЕГ Administration Calcium/Vitamin D 1 tab 09/04/19 21:00 09/04/19 20:18 Caltrate 600 + Vit D PO 1 tab HS ОЛЕГ Administration Memantine 10 mg 09/04/19 21:00 09/05/19 09:14 Namenda PO 10 mg BID ОЛЕГ Administration Multivitamins 1 tab 09/05/19 09:00 09/05/19 09:15 Theragran PO 1 tab DAILY ОЛЕГ Administration Rosuvastatin Calcium 10 mg 09/04/19 21:00 09/04/19 20:18 Crestor PO 10 mg HS ОЛЕГ Administration Senna/Docusate Sodium 1 tab 09/04/19 21:00 09/05/19 09:13 Senokot S PO 1 tab BID ОЛЕГ Administration Tamsulosin HCl 0.4 mg 09/04/19 21:00 09/04/19 20:18 Flomax PO 0.4 mg HS ОЛЕГ Administration - Exam General Appearance: NAD Heart: no gallops, no rubs, normal peripheral pulses Respiratory: no wheezes, rhonchi Respiratory - other findings: dec AE at bases Gastrointestinal: soft, non-tender, non-distended, normal bowel sounds Extremities: no cyanosis Neurological: no new deficit Hosp A/P - Plan 1. Acute hypoxic respiratory failure secondary to [id number] systolic/ diastolic heart failure exacerbation. 2. Paroxysmal atrial fibrillation, on anticoagulation. 3. Bilateral pleural effusion secondary to congestive heart failure. 4. 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 5. History of cerebrovascular accident. 6. Dementia. 7. Hyperlipidemia. 8. History of orthostatic hypotension, on midodrine and fludrocortisone. 9. Benign prostatic hypertrophy. 10. CKD 3. 11. Type 2 myocardial infarction. PLAN: Cont 20 mg IV Lasix daily Cont Eliquis, Midodrine, Multaq, Namenda, Crestor, aspirin, and Flomax. Resume fludrocortisone Echocardiogram has been done, report pending Cardiology and Pulmonary input appreciated Not on ACEI/ARB/Aldactone due to renal failure Home O2 setup HHC for HF mngt
[2019-09-05] MEDS: Calcium Carbonate + Vit D 1 TAB PO SCH (20:19)
[2019-09-05] MEDS: Tamsulosin HCl 0.4 MG CAP PO SCH (20:21)
[2019-09-05] MEDS: Rosuvastatin 5 MG TAB PO SCH (20:21)
[2019-09-05] MEDS ORDERED: Dronedarone HCl 400 MG TAB PO SCH (21:00)
[2019-09-06] MEDS: Budesonide 0.5 MG/2 ML NEB INH SCH ×2 (06:56→20:08)
[2019-09-06 08:25] LABS: Anion Gap 10 mmol/L (10-20); BUN (Urea Nitrogen) 20 mg/dL (8.4-25.7); Calc. Creatinine Clearance 35 mL/min (70-130); Calcium 8.3 mg/dL (7.8-10.44); Carbon Dioxide 26 mmol/L (23-31); Chloride 109 mmol/L (98-107); Estimated GFR-MDRD 41; Glucose 88 mg/dL (83-110); Potassium 3.8 mmol/L (3.5-5.1); Sodium 141 mmol/L (136-145)
[2019-09-06] MEDS: Aspirin Chewable 81 MG TAB PO SCH (08:45)
[2019-09-06] MEDS: Dronedarone HCl 400 MG TAB PO SCH ×2 (08:45→20:40)
[2019-09-06] MEDS: Apixaban 5 MG TAB PO SCH ×2 (08:45→20:36)
[2019-09-06] MEDS: Senokot S 8.6-50 MG TAB PO SCH ×2 (08:46→20:36)
[2019-09-06] MEDS: Fludrocortisone Acetate 0.1 MG TAB PO SCH (08:46)
[2019-09-06] MEDS: Midodrine HCl 5 MG TAB PO SCH ×3 (08:46→20:40)
[2019-09-06] MEDS ORDERED: Furosemide 20 MG/2 ML VIAL SLOW IVP SCH (09:00)
[2019-09-06] MEDS: Multivit, Therapeutic 1 TAB PO SCH (09:16)
--- NOTE | 2019-09-06 09:24 | PDOC.HOSPP ---
- Subjective Encounter Date: 09/06/19 Encounter Time: 11:40 Subjective: Patient without complaint. Ambulated well in hallway with PT without SOB. Awaiting home O2 and cardiac clearance for discharge. - Objective Vital Signs & Weight: Vital Signs (12 hours) Temp Pulse Resp BP Pulse Ox 09/06/19 06:56 86 12 09/06/19 04:00 97.8 F 69 18 94/54 L 93 L Weight Weight 175 lb I&O: 09/05/19 09/06/19 09/07/19 06:59 06:59 06:59 Intake Total 240 880 Output Total 300 Balance 240 580 Result Diagrams: 09/05/19 04:23 09/06/19 07:42 Hospitalist ROS - Review of Systems Constitutional: denies: fever, chills Respiratory: denies: cough, shortness of breath Cardiovascular: denies: chest pain, palpitations, orthopnea Gastrointestinal: denies: nausea, vomiting, abdominal pain - Medication Medications: Active Medications Generic Name Dose Route Start Last Admin Trade Name Radha PRN Reason Stop Dose Admin Apixaban 2.5 mg 09/04/19 21:00 09/06/19 08:45 Eliquis PO 2.5 mg BID ОЛЕГ Administration Aspirin 81 mg 09/05/19 09:00 09/06/19 08:45 Aspirin Chewable PO 81 mg DAILY ОЛЕГ Administration Budesonide 0.5 mg 09/04/19 18:30 09/06/19 06:56 Pulmicort Neb Solution INH 0.5 mg BID-RT ОЛЕГ Administration Calcium/Vitamin D 1 tab 09/04/19 21:00 09/05/19 20:19 Caltrate 600 + Vit D PO 1 tab HS ОЛЕГ Administration Dronedarone 400 mg 09/05/19 20:00 09/06/19 08:45 Multaq PO 400 mg 08,1999 ОЛЕГ Administration Fludrocortisone Acetate 0.1 mg 09/06/19 09:00 09/06/19 08:46 Florinef PO 0.1 mg DAILY ОЛЕГ Administration Furosemide 20 mg 09/06/19 09:00 09/06/19 08:47 Lasix SLOW IVP 20 mg DAILY ОЛЕГ Administration Memantine 10 mg 09/04/19 21:00 09/06/19 08:46 Namenda PO 10 mg BID ОЛЕГ Administration Midodrine 2.5 mg 09/05/19 21:00 09/06/19 08:46 Proamatine PO 2.5 mg TID ОЛЕГ Administration Multivitamins 1 tab 09/05/19 09:00 09/06/19 09:16 Theragran PO 1 tab DAILY ОЛЕГ Administration Rosuvastatin Calcium 10 mg 09/04/19 21:00 09/05/19 20:21 Crestor PO 10 mg HS ОЛЕГ Administration Senna/Docusate Sodium 1 tab 09/04/19 21:00 09/06/19 08:46 Senokot S PO 1 tab BID ОЛЕГ Administration Tamsulosin HCl 0.4 mg 09/04/19 21:00 09/05/19 20:21 Flomax PO 0.4 mg HS ОЛЕГ Administration - Exam General Appearance: NAD, awake alert ENT: moist mucosa Heart: RRR, no murmur, no gallops, no rubs Respiratory: CTAB, no wheezes, no rales, no ronchi Gastrointestinal: soft, non-tender, non-distended, normal bowel sounds Neurological: no focal deficits Musculoskeletal: normal tone, normal strength Psychiatric: normal affect, normal behavior Hosp A/P - Plan 1. Acute hypoxic respiratory failure secondary to [id number] systolic/ diastolic heart failure exacerbation. 2. Paroxysmal atrial fibrillation, on anticoagulation. 3. Bilateral pleural effusion secondary to congestive heart failure. 4. 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 5. History of cerebrovascular accident. 6. Dementia. 7. Hyperlipidemia. 8. History of orthostatic hypotension, on midodrine and fludrocortisone. 9. Benign prostatic hypertrophy. 10. CKD 3. 11. Type 2 myocardial infarction. 12. Acute hypoxic respiratory failure PLAN: On 20 mg IV Lasix daily, switch to po at discharge Cont Eliquis, Midodrine, Multaq, Namenda, Crestor, aspirin, and Flomax. Resume fludrocortisone Echocardiogram with EF 30-35%, would benefit from LifeVest but has dementia Cardiology and Pulmonary input appreciated Not on ACEI/ARB/Aldactone due to renal failure Home O2 setup, then D/C once ok with cardiology C for HF mngt
[2019-09-06] MEDS: Tamsulosin HCl 0.4 MG CAP PO SCH (20:36)
[2019-09-06] MEDS: Rosuvastatin 5 MG TAB PO SCH (20:36)
[2019-09-06] MEDS: Calcium Carbonate + Vit D 1 TAB PO SCH (20:40)
--- NOTE | 2019-09-06 23:05 | PRG ---
DATE OF SERVICE: 09/06/2019 SERVICE: Pulmonary Medicine. INTERVAL HISTORY: The patient is doing really well from respiratory standpoint. He is sleeping comfortably. I woke him up, and he had no significant dyspnea. He is talking in full sentences. He is not coughing or bringing up any phlegm. Otherwise, there has been no interval change to his condition. PHYSICAL EXAMINATION: VITAL SIGNS: Afebrile, pulse 67, blood pressure 111/59, respirations 17, saturation 98% on 2 L nasal cannula. GENERAL: The patient is awake and alert, in no apparent distress. LUNGS: Bilateral crackles are present. No prolonged expiratory phase or wheezing is appreciated. HEART: Normal rate, regular. ABDOMEN: Soft, nontender, nondistended. Bowel sounds are positive. MUSCULOSKELETAL: No cyanosis or clubbing. No pitting. NEUROLOGIC: Grossly nonfocal. LABORATORY DATA: Creatinine is stable at 1.59. Basic metabolic profile is otherwise unremarkable. Potassium 3.8. IMAGING STUDIES: Echocardiogram shows a 30% to 35% ejection fraction with hypokinesis of the left ventricle. ASSESSMENT: 1. Acute hypoxic respiratory failure. 2. Ywekz-zp-deyprpe systolic heart failure. 3. Paroxysmal atrial fibrillation. 4. Pleural effusions, bilateral. DISCUSSION AND PLAN: We will continue to diurese the patient to euvolemia. He remains at touch volume up. At this point, he is clearly moving in the right direction and demonstrates no significant respiratory distress. As such, Pulmonary will follow intermittently during this hospital stay. Please call with additional questions or concerns through time. Job ID: [id number]
--- NOTE | 2019-09-07 07:11 | CON ---
DATE OF CONSULTATION: 09/04/2019 REASON FOR CONSULTATION: Congestive heart failure. HISTORY OF PRESENT ILLNESS: Mr. Churchill is a very pleasant 89-year-old gentleman who I have seen and evaluated in the past. He has a history of paroxysmal atrial fibrillation in addition to CVA, who recently presented with increased shortness of breath. He was felt to have bronchitis. His BNP was elevated. He has had increased fluid and weight noted. He was seen and evaluated while in the emergency room. He has been given Lasix with significant diuresis. CURRENT MEDICATIONS: Include Crestor, Eliquis, Namenda, multivitamin, aspirin, Caltrate, Multaq, midodrine. PAST MEDICAL HISTORY: Orthostatic hypotension, paroxysmal atrial fibrillation, CVA, chronic systolic heart failure with last LVEF 40%, dementia, hernia repair, knee surgery. FAMILY HISTORY: One son, one daughter. No current tobacco or alcohol use. ALLERGIES: ACETAMINOPHEN, HYDROCORTISONE, OXYCODONE, TRAMADOL. REVIEW OF SYSTEMS: A 10-point review of systems is reviewed and as above, otherwise negative. PHYSICAL EXAMINATION: GENERAL: Patient is a pleasant male who is in no acute distress. The patient appears their stated age. VITAL SIGNS: Blood pressure 108/52, pulse 70, and temperature 97. NEUROLOGIC: The patient is alert and oriented x3 with no focal neurologic deficits. HEENT: Sclerae without icterus. Mouth has moist mucous membranes with normal pallor. NECK: No JVD. Carotid upstroke brisk. No bruits bilaterally. LUNGS: Few crackles noted bilaterally. BACK: No scoliosis or kyphosis. CARDIAC: Regular rate and rhythm with normal S1 and S2. No S3 or S4 noted. No significant rubs, murmurs, thrills, or gallops noted throughout the precordium. PMI is not displaced. There is no parasternal heave. ABDOMEN: Soft, nontender, nondistended. No peritoneal signs present. No hepatosplenomegaly. No abnormal striae. EXTREMITIES: 2+ femoral and 2+ dorsalis pedis pulses. No cyanosis, clubbing, or edema. SKIN: No gross abnormalities. PERTINENT LABORATORY DATA: Hemoglobin 9.3, white blood cell count 6.1, creatinine 1.58. BNP 1433. IMPRESSION: 1. Acute on chronic systolic heart failure. 2. Paroxysmal atrial fibrillation, now in sinus rhythm. 3. Dementia. RECOMMENDATIONS: Mr. Churchill's LVEF has been decreased in the past. LVEF on recent stress study performed in 2019 estimated 43%. He likely has underlying systolic failure. Continue with Lasix for further diuresis. If creatinine improves, may consider Entresto. We will review echo. Pulmonary has also been consulted for underlying bronchitis. Job ID: [id number]
[2019-09-07] MEDS: Budesonide 0.5 MG/2 ML NEB INH SCH ×2 (07:14→19:31)
[2019-09-07] MEDS: Cepastat Lozenges 1 LOZ PO PRN ×3 (08:54→17:54)
[2019-09-07] MEDS: Senokot S 8.6-50 MG TAB PO SCH ×2 (08:57→20:56)
[2019-09-07] MEDS: Aspirin Chewable 81 MG TAB PO SCH (08:57)
[2019-09-07] MEDS: Amiodarone 200 MG TAB PO SCH ×2 (08:57→20:57)
[2019-09-07] MEDS: Multivit, Therapeutic 1 TAB PO SCH (08:57)
[2019-09-07] MEDS: Apixaban 5 MG TAB PO SCH ×2 (08:58→20:56)
[2019-09-07] MEDS: Midodrine HCl 5 MG TAB PO SCH ×3 (08:58→20:57)
[2019-09-07] MEDS: Furosemide 40 MG TAB PO SCH (08:59)
[2019-09-07] MEDS ORDERED: Furosemide 20 MG TAB PO SCH (09:00)
[2019-09-07] MEDS: Fludrocortisone Acetate 0.1 MG TAB PO SCH (09:17)
[2019-09-07] MEDS: Albuterol Sulfate 1.25 MG/3 ML NEB NEB SCH ×3 (15:00→19:30)
[2019-09-07] MEDS ORDERED: Benzonatate 100 MG CAP PO PRN (15:10)
--- NOTE | 2019-09-07 15:13 | PDOC.HOSPP ---
- Subjective Encounter Date: 09/07/19 Encounter Time: 10:40 Subjective: c/o cough mostly dry is eating well multiple family members in room - Objective Vital Signs & Weight: Vital Signs (12 hours) Temp Pulse Resp BP Pulse Ox 09/07/19 11:55 98.2 F 73 16 126/66 95 09/07/19 07:14 74 16 09/07/19 07:07 99.2 F 77 21 H 102/51 L 94 L 09/07/19 03:21 98.9 F 76 14 102/55 L 92 L Weight Weight 172 lb 3.2 oz I&O: 09/06/19 09/07/19 09/08/19 06:59 06:59 06:59 Intake Total 880 720 Output Total 300 1175 Balance 580 -455 Result Diagrams: 09/05/19 04:23 09/06/19 07:42 Hospitalist ROS - Medication Medications: Active Medications Generic Name Dose Route Start Last Admin Trade Name Freq PRN Reason Stop Dose Admin Amiodarone HCl 400 mg 09/07/19 09:00 09/07/19 08:57 Cordarone PO 400 mg BID ОЛЕГ Administration Apixaban 2.5 mg 09/04/19 21:00 09/07/19 08:58 Eliquis PO 2.5 mg BID ОЛЕГ Administration Aspirin 81 mg 09/05/19 09:00 09/07/19 08:57 Aspirin Chewable PO 81 mg DAILY ОЛЕГ Administration Budesonide 0.5 mg 09/04/19 18:30 09/07/19 07:14 Pulmicort Neb Solution INH 0.5 mg BID-RT ОЛЕГ Administration Calcium/Vitamin D 1 tab 09/04/19 21:00 09/06/19 20:40 Caltrate 600 + Vit D PO 1 tab HS ОЛЕГ Administration Fludrocortisone Acetate 0.1 mg 09/06/19 09:00 09/07/19 09:17 Florinef PO 0.1 mg DAILY ОЛЕГ Administration Furosemide 40 mg 09/07/19 09:00 09/07/19 08:59 Lasix PO 40 mg DAILY ОЛЕГ Administration Memantine 10 mg 09/04/19 21:00 09/07/19 08:57 Namenda PO 10 mg BID ОЛЕГ Administration Midodrine 2.5 mg 09/05/19 21:00 09/07/19 08:58 Proamatine PO 2.5 mg TID ОЛЕГ Administration Multivitamins 1 tab 09/05/19 09:00 09/07/19 08:57 Theragran PO 1 tab DAILY ОЛЕГ Administration Rosuvastatin Calcium 10 mg 09/04/19 21:00 09/06/19 20:36 Crestor PO 10 mg HS ОЛЕГ Administration Senna/Docusate Sodium 1 tab 09/04/19 21:00 09/07/19 08:57 Senokot S PO 1 tab BID ОЛЕГ Administration Tamsulosin HCl 0.4 mg 09/04/19 21:00 09/06/19 20:36 Flomax PO 0.4 mg HS ОЛЕГ Administration Throat Lozenges 1 radha 09/05/19 11:00 09/07/19 12:04 Cepastat Lozenges PO 1 radha Q2H PRN Administration Sore Throat - Exam General Appearance: NAD, awake alert Eye: PERRL, anicteric sclera ENT: no oropharyngeal lesions, moist mucosa Neck: supple, no JVD Heart: RRR, no murmur Respiratory: no wheezes, no rales, rhonchi Gastrointestinal: soft, non-tender, non-distended, normal bowel sounds Extremities: no cyanosis, no edema Neurological: cranial nerve grossly intact, no focal deficits Psychiatric: normal affect, A&O x 3 Hosp A/P (1) CHF exacerbation Code(s): I50.9 - HEART FAILURE, UNSPECIFIED Status: Acute Qualifiers: Heart failure type: combined systolic and diastolic Qualified Code(s): I50.43 - Acute on chronic combined systolic (congestive) and diastolic ( congestive) heart failure (2) Acute respiratory failure with hypoxia Code(s): J96.01 - ACUTE RESPIRATORY FAILURE WITH HYPOXIA Status: Resolved (3) Chronic anemia Code(s): D64.9 - ANEMIA, UNSPECIFIED Status: Chronic (4) CKD (chronic kidney disease) stage 3, GFR 30-59 ml/min Code(s): N18.3 - CHRONIC KIDNEY DISEASE, STAGE 3 (MODERATE) Status: Chronic (5) Hypotension Status: Chronic Qualifiers: Hypotension type: idiopathic hypotension Qualified Code(s): I95.0 - Idiopathic hypotension (6) Atrial fibrillation Code(s): I48.91 - UNSPECIFIED ATRIAL FIBRILLATION Status: Chronic Qualifiers: Atrial fibrillation type: paroxysmal Qualified Code(s): I48.0 - Paroxysmal atrial fibrillation (7) BPH (benign prostatic hyperplasia) Code(s): N40.0 - BENIGN PROSTATIC HYPERPLASIA WITHOUT LOWER URINRY TRACT SYMP Status: Chronic Qualifiers: Lower urinary tract symptom presence: unspecified whether lower urinary tract symptoms present Qualified Code(s): N40.0 - Benign prostatic hyperplasia without lower urinary tract symptoms (8) CVA (cerebrovascular accident) Code(s): I63.9 - CEREBRAL INFARCTION, UNSPECIFIED Status: Chronic Qualifiers: CVA mechanism: unspecified Qualified Code(s): I63.9 - Cerebral infarction, unspecified (9) Dementia Code(s): F03.90 - UNSPECIFIED DEMENTIA WITHOUT BEHAVIORAL DISTURBANCE Status: Chronic Qualifiers: Dementia type: Alzheimer's disease Dementia behavioral disturbance: without behavioral disturbance (10) Dyslipidemia Code(s): E78.5 - HYPERLIPIDEMIA, UNSPECIFIED Status: Chronic (11) Physical deconditioning Code(s): R53.81 - OTHER MALAISE Status: Acute - Plan ambulatory spo2 in am, home O2 if spo2 <89% not sure if he is a candidate for life vest, family are hoping to have one put on him!, they are aware of his age and medical issues and may not like it. he has ambulated around 90ft on and needs to mobilize more on midodrine, florinef, lasix, eliquis, crestor, asp, flomax, amiodarone bid, namenda hemostable has old right rib fractures, likely from a prior fall?, is on eliquis, family aware of it. has 4.5cm thoracic aortic aneurysm dc plan in am if ok with cardiology
[2019-09-07] MEDS: Triple Antibiotic Oint 1 GM Packet TOP PRN (15:45)
[2019-09-07] MEDS: Diabetic Tussin 200 MG/10 ML UDCUP PO PRN ×2 (15:45→20:58)
[2019-09-07] MEDS: Rosuvastatin 5 MG TAB PO SCH (20:58)
[2019-09-07] MEDS: Tamsulosin HCl 0.4 MG CAP PO SCH (20:58)
[2019-09-07] MEDS: Calcium Carbonate + Vit D 1 TAB PO SCH (20:58)
[2019-09-08] MEDS: guaiFENesin ER 600 MG TAB PO SCH ×2 (04:35→09:29)
[2019-09-08 05:29] LABS: Anion Gap 10 mmol/L (10-20); BUN (Urea Nitrogen) 22 mg/dL (8.4-25.7); Calc. Creatinine Clearance 33 mL/min (70-130); Calcium 8.4 mg/dL (7.8-10.44); Carbon Dioxide 28 mmol/L (23-31); Chloride 107 mmol/L (98-107); Estimated GFR-MDRD 38; Glucose 95 mg/dL (83-110); Potassium 3.3 mmol/L (3.5-5.1); Sodium 142 mmol/L (136-145)
[2019-09-08] MEDS: Budesonide 0.5 MG/2 ML NEB INH SCH (07:28)
[2019-09-08] MEDS: Albuterol Sulfate 1.25 MG/3 ML NEB NEB SCH (07:28)
[2019-09-08] MEDS: Aspirin Chewable 81 MG TAB PO SCH (09:27)
[2019-09-08] MEDS: Fludrocortisone Acetate 0.1 MG TAB PO SCH (09:27)
[2019-09-08] MEDS: Senokot S 8.6-50 MG TAB PO SCH (09:27)
[2019-09-08] MEDS: Multivit, Therapeutic 1 TAB PO SCH (09:27)
[2019-09-08] MEDS: Apixaban 5 MG TAB PO SCH (09:27)
[2019-09-08] MEDS: Amiodarone 200 MG TAB PO SCH (09:28)
[2019-09-08] MEDS: Furosemide 40 MG TAB PO SCH (09:28)
[2019-09-08] MEDS: Midodrine HCl 5 MG TAB PO SCH ×2 (09:28→15:28)
[2019-09-08 12:59] VITALS: TEMP 98.5
[2019-09-08] MEDS: Triple Antibiotic Oint 1 GM Packet TOP PRN (15:29)
--- NOTE | 2019-09-08 16:03 | PRG ---
DATE OF SERVICE: 09/08/2019 SUBJECTIVE: Mr. Churchill has done well over the weekend. He is tentatively scheduled for discharge today. He is opted against wearing a LifeVest, which at 89 years of age, I understand. OBJECTIVE: VITAL SIGNS: He is afebrile, heart rate 71, respiratory rate is 22, and oximetry is 94 on 2 L. I am told his by his son that his saturations were in the 90s on no oxygen. Blood pressure 103/55. LUNGS: Clear. HEART: Regular rhythm. ABDOMEN: Soft. IMPRESSION: 1. New onset congestive heart failure, clinically stable. 2. Rryre-ua-xgrzxbo kidney disease. 3. History of atrial fibrillation. 4. History of cerebrovascular accident. 5. Dementia, although his family is still letting him make decisions about things. PLAN: I met with the son and answered all of his questions. Overall, he appears stable for discharge. Job ID: [id number]
--- NOTE | 2019-09-08 17:59 | DIS ---
DATE OF ADMISSION: 09/03/2019 DATE OF DISCHARGE: 09/08/2019 DISCHARGE DISPOSITION: Home with Home Health. PRIMARY DISCHARGE DIAGNOSES: 1. Congestive heart failure exacerbation with both systolic and diastolic dysfunction. 2. Acute respiratory failure with hypoxia secondary to above, resolving. SECONDARY DISCHARGE DIAGNOSES: 1. Chronic anemia. 2. Chronic kidney disease stage 3. 3. Hypotension. 4. Chronic atrial fibrillation. 5. Benign prostatic hyperplasia. 6. History of CVA. 7. Dementia. 8. Dyslipidemia. 9. Deconditioning. PROCEDURES DONE DURING HOSPITALIZATION: Echo with 2D Doppler showed an ejection fraction of 30% to 35%, anterior wall hypokinesis. Left atrium was moderately dilated. Moderate mitral regurgitation. Hemoglobin and hematocrit of 9.5 and 30, platelet count 168, white count of 6.4, MCV 89, BUN 22, creatinine 1.7, albumin 3.28. CT chest done showed no evidence of pneumonia. There were bilateral pleural effusions with compressive atelectasis. 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 DISCHARGE MEDICATIONS: 1. Calcium with vitamin D one capsule daily. 2. Florinef 0.1 mg p.o. daily. 3. Namenda 10 mg twice daily. 4. Midodrine 2.5 mg p.o. three times daily. 5. Centrum Silver 1 tablet daily. 6. Crestor 10 mg p.o. at bedtime. 7. Albuterol inhaler q.6 hourly p.r.n. 8. Amiodarone 400 mg p.o. twice daily for 1 week, then 200 mg p.o. twice daily for 2 weeks, then 200 mg p.o. daily thereafter. 9. Eliquis 2.5 mg twice daily. 10. Aspirin 81 mg p.o. daily. 11. Lasix 40 mg p.o. daily. 12. Flomax 0.4 mg p.o. at bedtime. ALLERGIES: TO ULTRAM. DISCHARGE PLAN: The patient to follow up with Dr. Go on 09/11/2019 at 9:15 a.m. He needs to follow up with Dr. Canchola and Dr. Turner as advised. BRIEF COURSE DURING HOSPITALIZATION: The patient initially was brought to emergency room with complaints of shortness of breath. He was diagnosed with new onset congestive heart failure exacerbation with systolic and diastolic dysfunction. Echo showed ejection fraction of around 30% to 35%. He was gently diuresed during his stay here. The patient also required oxygen with acute respiratory failure with hypoxia due to congestive heart failure exacerbation. He was evaluated by Dr. Pavon and Dr. Turner for Pulmonology and Dr. Canchola for Cardiology. His medications were optimized during his stay here. The patient is 89 years old and has underlying dementia and is not a candidate for LifeVest or AICD. He has remained hemodynamically stable with kidney function being stable as well. [facility] has been set up prior to discharge for PT and nursing care. Please note, I have seen and examined the patient on the day of discharge. He has been cleared for discharge by Dr. Canchola and Dr. Turner. Job ID: [id number]
[2019-09-08 18:44] VITALS: BP 95/51
--- NOTE | 2019-09-09 10:34 | PRG ---
DATE OF SERVICE: 09/08/2019 SUBJECTIVE: Mr. Churchill is doing well. He has diuresed. No current complaints. OBJECTIVE: VITAL SIGNS: Blood pressure 103/55, pulse 71, temperature afebrile. LUNGS: Clear to auscultation. HEART: Regular rate and rhythm. ABDOMEN: Soft, nontender, nondistended. EXTREMITIES: No edema. LABORATORY DATA: Pertinent labs; hemoglobin 9.5, creatinine 1.7. IMPRESSION: 1. Acute on chronic systolic heart failure. 2. Paroxysmal atrial fibrillation. 3. Previous stroke. RECOMMENDATIONS: 1. I had a long discussion with Mr. Churchill and Mr. Churchill's son about the LifeVest. His LVEF is 30% to 35%. After much discussion, Mr. Churchill has opted not to proceed with LifeVest. I did state that if he change his mind, we could always set this up as an outpatient. They were happy with this recommendation. 2. At this point, we decrease amiodarone 400 mg a day and continue Eliquis. 3. Continue aspirin 81 q.a.m. 4. Continue Crestor and low-dose Lasix. 5. Otherwise, from my standpoint, I have no further recommendations. Job ID: [id number]
== END 2019-09-08 16:00 | disposition home health service (06) | DRG 280 ==
LOC: ERS 21:03 → ERHOLD 21:52 → 2NO 09-04 13:49
PROVIDERS: ADMIT Internal Medicine; ATTEND Internal Medicine
DX: I13.0 Hypertensive heart and chronic kidney disease with heart failure and stage 1 through stage 4 chronic kidney disease, or unspecified chronic kidney disease (principal); I21.A1 Myocardial infarction type 2; J96.01 Acute respiratory failure with hypoxia; I50.43 Acute on chronic combined systolic (congestive) and diastolic (congestive) heart failure; I48.20 Chronic atrial fibrillation, unspecified; N18.3 Chronic kidney disease, stage 3 (moderate); D64.9 Anemia, unspecified; I95.9 Hypotension, unspecified; Z86.73 Personal history of transient ischemic attack (TIA), and cerebral infarction without residual deficits; E78.5 Hyperlipidemia, unspecified; F03.90 Unspecified dementia, unspecified severity, without behavioral disturbance, psychotic disturbance, mood disturbance, and anxiety; Z88.5 Allergy status to narcotic agent; N40.1 Benign prostatic hyperplasia with lower urinary tract symptoms; R35.0 Frequency of micturition; I48.0 Paroxysmal atrial fibrillation; I71.2 Thoracic aortic aneurysm, without rupture; R53.81 Other malaise
CPT/HCPCS: 36415; 71250; 80048; 80053; 80069; 81001; 83735; 84484; 85025; 93306; 93798; 94640; 96374; J1940; J7626